=== PATIENT | female | born 1980 | race African-American/Black ===

== ENCOUNTER 2021-05-01 19:51 | Emergency (ER) | payer SELFPAY ==
[2021-05-01] MEDS ORDERED: DIPHENHYDRAMINE 50 MG/ML VIAL ONE (20:31)
[2021-05-01] MEDS ORDERED: METOCLOPRAMIDE 10 MG/2mL INJ ONE (20:31)
[2021-05-01] MEDS ORDERED: NA CHLORIDE 0.9% 1,000 ML ONE (20:31)
[2021-05-01 20:37] LABS: Basophils % 0.6 % (0-1.3); Hematocrit 35.4 % (36.0-45.0); Lymphocytes % 20.9 % (15.3-44.8); MPV 8.7 fL (7.6-11.3); RBC Red Blood Cell Count 4.76 M/uL (3.86-4.86)
[2021-05-01 21:03] LABS: ALT/SGPT 89 U/L (12-78); AST/SGOT 22 U/L (15-37); Albumin 3.8 g/dL (3.4-5.0); Alkaline Phosphatase 93 U/L (45-117); BUN Blood Urea Nitrogen 18 mg/dL (7-18); Bicarbonate 26 mmol/L (21-32); Bilirubin Direct < 0.1 mg/dL (0-0.2); Bilirubin Total 0.2 mg/dL (0.2-1.0); Glucose Level 114 mg/dL (74-106); Lipase 129 U/L (73-393); Protein, Total 8.5 g/dL (6.4-8.2); Sodium Level 140 mmol/L (136-145)
[2021-05-01 21:53] LABS: Urine Blood Negative (Negative); Urine Glucose Negative (Negative); Urine Protein Negative (Negative)
--- NOTE | 2021-05-01 22:51 | EDPHYS ---
Physician Documentation [facility] Name: Kathia Zendejas Age: 41 yrs Sex: Female : 1980 Arrival Date: 05/01/2021 Time: 19:54 Bed 19 Private MD: ED Physician Dhruv Gerardo HPI: 05/01 19:55 This 41 yrs old Female presents to ER via EMS with complaints of Abdominal Pain. jmm 19:55 The patient presents with abdominal pain. Onset: The symptoms/episode began/occurred jmm gradually, 3 day(s) ago. The symptoms do not radiate. Associated signs and symptoms: Pertinent positives: nausea and vomiting. The symptoms are described as achy. Modifying factors: The symptoms are alleviated by nothing, the symptoms are aggravated by nothing. This is a 41 year old female with no chronic medical conditions that presents to the ED with complaints of abdominal pain beginning approx 3 days ago with vomiting. Patient states symptoms are similar to previous episodes since her hysterectomy. . 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 - Social history:: Smoking status: Patient reports the use of cigarette tobacco products, smokes one-half pack cigarettes per day. ROS: 19:55 Constitutional: Negative for fever, chills, and weight loss, Cardiovascular: Negative jmm for chest pain, palpitations, and edema, Respiratory: Negative for shortness of breath, cough, wheezing, and pleuritic chest pain. 19:55 Abdomen/GI: Positive for abdominal pain, nausea and vomiting. 19:55 All other systems are negative. Exam: 19:55 Constitutional: This is a well developed, well nourished patient who is awake, alert, jmm and in no acute distress. Head/Face: atraumatic. Eyes: EOMI, no conjunctival erythema appreciated ENT: Moist Mucus Membranes Neck: Trachea midline, Supple Chest/axilla: Normal chest wall appearance and motion. Cardiovascular: Regular rate and rhythm. No edema appreciated Respiratory: Normal respirations, no respiratory distress appreciated Abdomen/GI: Non distended, soft Back: Normal ROM Skin: General appearance color normal MS/ Extremity: Moves all extremities, no obvious deformities appreciated, no edema noted to the lower extremities Neuro: Awake and alert, normal gait Psych: Behavior is normal, Mood is normal, Patient is cooperative and pleasant Vital Signs: 19:57 BP 100 / 59; Pulse 69; Resp 18; Temp 97.3; Pulse Ox 100% on R/A; Pain 10/10; zb 20:31 Weight 52.62 kg; Height 5 ft. (152.40 cm); zb 21:30 BP 100 / 60; Pulse 107; Resp 18; Pulse Ox 99% on R/A; zb 22:19 BP 122 / 90; Pulse 101; Resp 16; Pulse Ox 100% on R/A; zb 20:31 Body Mass Index 22.65 (52.62 kg, 152.40 cm) zb MDM: 19:56 Patient medically screened. [facility] 22:48 Data reviewed: vital signs, nurses notes. Counseling: I had a detailed discussion with [facility] the patient and/or guardian regarding: the historical points, exam findings, and any diagnostic results supporting the discharge/admit diagnosis, radiology results, the need for outpatient follow up, to return to the emergency department if symptoms worsen or persist or if there are any questions or concerns that arise at home. 22:48 ED course: Patient is alert and non toxic in appearance in the ED. No signs of resp [facility] distress. Patient is advised to follow up with GI for further evaluation. Patient understood and agrees with the plan of care. . 05/01 19:55 Order name: Basic Metabolic Panel; Complete Time: 21:06 [facility] 05/01 19:55 Order name: CBC with Diff; Complete Time: 20:51 [facility] 05/01 19:55 Order name: Hepatic Function; Complete Time: 21:06 [facility] 05/01 19:55 Order name: Lipase; Complete Time: 21:06 [facility] 05/01 19:55 Order name: CT Abd/Pelvis - IV Contrast Only [facility] 05/01 21:53 Order name: Urine Dipstick-Ancillary; Complete Time: 22:00 [facility] 05/01 19:55 Order name: IV Saline Lock; Complete Time: 20:31 [facility] 05/01 19:55 Order name: Labs collected and sent; Complete Time: 20:31 [facility] 05/01 21:06 Order name: Urine Dipstick-Ancillary (obtain specimen); Complete Time: 21:50 [facility] Administered Medications: 20:30 Drug: NS 0.9% 1000 ml Route: IV; Rate: 1 bolus; Site: left antecubital; zb 21:30 Follow up: Response: No adverse reaction; Marked relief of symptoms; IV Status: zb Completed infusion; IV Intake: 1000ml 20:30 Drug: Reglan (metoCLOPramide) 20 mg Route: IVP; Site: left antecubital; zb 20:47 Follow up: Response: No adverse reaction; Marked relief of symptoms; Pain is decreased zb 20:31 Drug: diphenhydrAMINE 12.5 mg Route: IVP; Site: left antecubital; zb 20:47 Follow up: Response: No adverse reaction; Marked relief of symptoms; Nausea is decreasedzb Disposition: 05/02 05:12 Co-signature as Attending Physician, Dhruv Gerardo MD. [email or web address] Disposition: 05/01/21 22:50 Discharged to Home. Impression: Generalized abdominal pain, Vomiting. - Condition is Stable. - Discharge Instructions: Abdominal Pain, Adult, Nausea and Vomiting, Adult. - Prescriptions for Zofran ODT 4 mg Oral tablet,disintegrating - place 1 tablet by TRANSLINGUAL route every 4-6 hours; 20 tablet. - Medication Reconciliation Form, Thank You Letter, Antibiotic Education, Prescription Opioid Use form. - Follow up: Elías Hdez MD; When: 2 - 3 days; Reason: Recheck today's complaints, Continuance of care, Re-evaluation by your physician. Signatures: Dispatcher [employer] [facility] Salomon Castellanos PA PA jmm Holmes, Maurice, MD MD 7 Symone Kilgore RN RN zb Corrections: (The following items were deleted from the chart) 05/01 22:56 22:50 05/01/2021 22:50 Discharged to Home. Impression: Generalized abdominal pain; zb Vomiting. Condition is Stable. Forms are Medication Reconciliation Form, Thank You Letter, Antibiotic Education, Prescription Opioid Use. Follow up: Elías Hdez; When: 2 - 3 days; Reason: Recheck today's complaints, Continuance of care, Re-evaluation by your physician. [employer]
--- NOTE | 2021-05-01 22:51 | ER ---
Nurse's Notes [facility] Name: Kathia Zendejas Age: 41 yrs Sex: Female : 1980 Arrival Date: 05/01/2021 Time: 19:54 Bed 19 Private MD: Diagnosis: Generalized abdominal pain;Vomiting Presentation: 05/01 19:57 Chief complaint: EMS states: pt coming from [facility] nausea x2 days, abdominal pain zb getting worst. Give zofan 4mg IM. Coronavirus screen: At this time, the client does not indicate any symptoms associated with coronavirus-19. Ebola Screen: No symptoms or risks identified at this time. Initial Sepsis Screen: Does the patient meet any 2 criteria? No. Patient's initial sepsis screen is negative. Does the patient have a suspected source of infection? No. Patient's initial sepsis screen is negative. Risk Assessment: Do you want to hurt yourself or someone else? Patient reports no desire to harm self or others. Onset of symptoms was May 01, 2021. 19:57 Acuity: BETSY 3 zb 19:57 Method Of Arrival: EMS: [facility] zb Triage Assessment: 20:00 General: Appears uncomfortable, Behavior is anxious, crying, Reports feeling ill for zb 2-3 days. Pain: Complains of pain in right upper quadrant, left upper quadrant and right lower quadrant Pain currently is 10 out of 10 on a pain scale. Quality of pain is described as aching, sharp, tender, Pain began 1 day ago. Is intermittent, Noted to be grimacing, guarding. Neuro: Level of Consciousness is awake, alert, obeys commands, Oriented to person, place, time, Moves all extremities. Full function. Cardiovascular: Patient's skin is warm and dry. Respiratory: Airway is patent. GI: Abdomen is flat, Pt is actively vomiting undigested food, Bowel sounds present X 4 quads. Reports constipation, nausea, vomiting. Derm: Skin is intact, is healthy with good turgor. Musculoskeletal: Circulation, motion, and sensation intact. Range of motion: intact in all extremities. 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 - Social history:: Smoking status: Patient reports the use of cigarette tobacco products, smokes one-half pack cigarettes per day. Screenin:37 Abuse screen: Denies threats or abuse. Denies injuries from another. Nutritional zb screening: No deficits noted. Tuberculosis screening: No symptoms or risk factors identified. Fall Risk None identified. Assessment: 20:38 Reassessment: see triage assessment. zb 20:38 GI: Abdomen is tender to palpation in right upper quadrant and right lower quadrant. zb 21:30 Reassessment: Patient appears in no apparent distress at this time. Patient and/or zb family updated on plan of care and expected duration. Pain level reassessed. Patient is alert, oriented x 3, equal unlabored respirations, skin warm/dry/pink. Patient states symptoms have improved. 22:18 Reassessment: Patient appears in no apparent distress at this time. Patient and/or zb family updated on plan of care and expected duration. Pain level reassessed. Patient is alert, oriented x 3, equal unlabored respirations, skin warm/dry/pink. Patient states symptoms have improved. 22:55 Reassessment: Patient removed iv her self. while attempting to get d/c paperwork. zb patient walked out and eloped. Vital Signs: 19:57 BP 100 / 59; Pulse 69; Resp 18; Temp 97.3; Pulse Ox 100% on R/A; Pain 10/10; zb 20:31 Weight 52.62 kg; Height 5 ft. (152.40 cm); zb 21:30 BP 100 / 60; Pulse 107; Resp 18; Pulse Ox 99% on R/A; zb 22:19 BP 122 / 90; Pulse 101; Resp 16; Pulse Ox 100% on R/A; zb 20:31 Body Mass Index 22.65 (52.62 kg, 152.40 cm) zb ED Course: 19:54 Patient arrived in ED. mw2 19:55 Symone Kilgore, RN is Primary Nurse. zb 19:55 Salomon Castellanos PA is PHCP. [facility] 19:55 Dhruv Gerardo MD is Attending Physician. m 20:00 Triage completed. zb 20:15 Inserted saline lock: 20 gauge in left antecubital area, using aseptic technique. Blood zb collected. 20:15 Initial lab(s) drawn, by me, sent to lab. zb 20:37 Patient has correct armband on for positive identification. Bed in low position. Call zb light in reach. Pulse ox on. NIBP on. Door closed. Noise minimized. 20:37 Arm band placed on. zb 21:55 CT Abd/Pelvis - IV Contrast Only In Process Unspecified. EDMS 22:50 Elías Hdez MD is Referral Physician. m 22:55 No provider procedures requiring assistance completed. IV discontinued, intact, zb bleeding controlled, No redness/swelling at site. Pressure dressing applied. Administered Medications: 20:30 Drug: NS 0.9% 1000 ml Route: IV; Rate: 1 bolus; Site: left antecubital; zb 21:30 Follow up: Response: No adverse reaction; Marked relief of symptoms; IV Status: zb Completed infusion; IV Intake: 1000ml 20:30 Drug: Reglan (metoCLOPramide) 20 mg Route: IVP; Site: left antecubital; zb 20:47 Follow up: Response: No adverse reaction; Marked relief of symptoms; Pain is decreased zb 20:31 Drug: diphenhydrAMINE 12.5 mg Route: IVP; Site: left antecubital; zb 20:47 Follow up: Response: No adverse reaction; Marked relief of symptoms; Nausea is decreasedzb Intake: 21:30 IV: 1000ml; Total: 1000ml. zb Outcome: 22:50 Discharge ordered by . mily 22:55 Eloped Time discovered patient gone: May 01, 2021 at 22:55 zb 22:56 Patient left the ED. zb Signatures: Dispatcher [employer] EDMS Salomon Castellanos PA PA Riky Velazquez mw2 Symone iKlgore RN RN zb
[2021-05-01 23:15] VITALS: TEMP 97.3
[2021-05-01 23:17] VITALS: BP 122/90; O2SAT 100
--- NOTE | 2021-05-03 09:04 | RAD REPORT ---
EXAM DESCRIPTION: CT - Abdomen Pelvis W Contrast - 05/02/2021 6:46 am CLINICAL HISTORY: Abdominal pain, hysterectomy. COMPARISON: None. TECHNIQUE: CT of the abdomen and pelvis was performed following intravenous administration of iodina freddy contrast. Arterial phase images through the abdomen, and portal venous phase images through the a bdomen and pelvis were obtained. Oral contrast was not administered. Axial, coronal, and sagittal sof t tissue window reconstructions were created and sent to PACS. This exam was performed according to our departmental dose-optimization program, which includes autom ated exposure control, adjustment of the mA and/or kV according to patient size and/or use of iterati ve reconstruction technique. FINDINGS: Mild motion degradation. Thoracic: No significant abnormality. Hepatobiliary: No concerning hepatic lesion identified. The hepatic and portal veins are patent. The gallbladder is surgically absent. No pathologic biliary ductal dilatation. Pancreas: Unremarkable. Spleen: Unremarkable. Gastrointestinal: No evidence of bowel obstruction or perienteric inflammation. The appendix is mendez l. Moderate amount of fecal material throughout the colon. Adrenals: No abnormality identified in either adrenal gland. 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 Nonobstructive calculus in the mid righ t kidney measures 0.3 cm. No ureteral calculi or hydronephrosis bilaterally. No concerning parenchyma l lesion in either kidney. Bladder/Reproductive: Grossly unremarkable appearance of the underdistended urinary bladder by CT darlin hnique. Hysterectomy. Vascular/Lymphatics: No lymphadenopathy identified by CT size criteria. Abdominal aorta is normal in caliber. The major visceral vessels are patent. Few small bilateral pelvic phleboliths. Musculoskeletal: No concerning osseous lesion identified. Anterior abdominal wall midline postsurgica l changes, with no fluid collections or inflammatory changes. Fluid / peritoneum: No significant free fluid. No free intraperitoneal air identified. IMPRESSION 1. No acute abnormality identified in the abdomen or pelvis by CT. 2. Status post hysterectomy, with no free air or free fluid identified. 3. Moderate amount of fecal material throughout the colon. Correlate for constipation. 4. Nonobstructive right renal calculus. 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 Electronically signed by: Opal Shelton MD 05/01/2021 10:16 PM CDT Due to temporary technical issues with the PACS/Fluency reporting system, reports are being signed by the in house radiologists without review as a courtesy to insure prompt reporting. The interpreting radiologist is fully responsible for the content of the report.
== END 2021-05-01 22:56 | disposition home or self-care (01) ==
LOC: ER 19:51
DX: R11.10 Vomiting, unspecified (principal); F17.210 Nicotine dependence, cigarettes, uncomplicated
CPT/HCPCS: 36415; 74177; 80048; 80076; 81003; 83690; 85025; J1200; J2765; J7030; Q9967

== ENCOUNTER 2021-10-01 16:17 | Emergency (ER) | payer SELFPAY ==
--- OUTSIDE RECORDS SUMMARY | 2021-10-01 16:24 | XMS REPORT | Continuity of Care Document ---
:1980 Author Organization [facility] t Address [address] [place] [address] Care Team Providers Name Role Phone FIELDS ROBEL Arora Primary Care Physician Unavailable Roberto Hayden Attending Clinician Unavailable Ronak Richard Attending Clinician Unavailable Checo SANCHEZ Attending Clinician Unavailable DAVIS Attending Clinician Unavailable DIAMOND, Maite Attending Clinician Unavailable Maite ABDALLA Attending Clinician Unavailable FIELDS, A Attending Clinician Unavailable SAUL M Attending Clinician Unavailable QIAN, T Attending Clinician Unavailable JANE Attending Clinician Unavailable DR ANDREA Attending Clinician Unavailable DR MARIVEL Attending Clinician Unavailable DR ROSA Attending Clinician Unavailable DR Maite SEGURA Attending Clinician Unavailable DR WOO Attending Clinician Unavailable DR Enrique STOVER Attending Clinician Unavailable CEDRICK, Attending Clinician Unavailable DR Yolanda MENDEZ Attending Clinician Unavailable DR MAURISIO Attending Clinician Unavailable Physician, Primary or Family Admitting Clinician UnavailRonak Szymanski Admitting Clinician Unavailable DR ANDREA Admitting Clinician Unavailable DR MARIVEL Admitting Clinician Unavailable DR ROSA Admitting Clinician Unavailable DR Maite SEGURA Admitting Clinician Unavailable DR WOO Admitting Clinician Unavailable DR Enrique STOVER Admitting Clinician Unavailable CEDRICK, MR Admitting Clinician Unavailable DR Yolanda MENDEZ Admitting Clinician Unavailable DR MAURISIO Admitting Clinician Unavailable Payers Payer Name Policy Type Policy Number Effective Date Expiration Date Ivan BELTRAN [id number] 2021 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 00:00:00 00:00:00 Problems Condition Condition Condition Status Onset Resolution Last Treating Co mments Source Name Details Category Date Date Treatment Clinician Date Cellulitis Cellulitis Diagnosis Active [facility] of right of right Care finger finger [facility] HTN HTN Problem Active [facility] (hypertens (hypertens Ca re ion) ion) [facility] Screening Screening Diagnosis Active C entral for STD for STD Care (sexually (sexually Comm uni transmitte transmitte ty d disease) d disease) He [facility] Hand pain, Hand pain, Diagnosis Active [facility] right right Care [facility] Generalize Generalize Diagnosis Active [facility] d rash d rash Care [facility] Allergies, Adverse Reactions, Alerts Allergy Allergy Status Severity Reaction(s) Onset Inactive Treating Comm ents Source Name Type Date Date Clinician No Known DA Active U 2020-0 [facility] 00:00: [facility] [place] No Known DA Active U 2020-0 [facility] Allergie 11-24 [facility] 00:00: [facility] 00 [facility] [place] No Known DA Active U 2020-0 [facility] Allergie -05 [facility] 00:00: e 00 [facility] No Known DA Active U 2020-0 [facility] Allergie -05 [facility] s 00:00: e 00 [facility] Center NO KNOWN Allergy Active [facility] Medications Ordered Filled Start Stop Current Ordering Indication Dosage Frequency Signature Comments Components Source Medication Medication Date Date Medication? Clinician (SIG) Name Name Augmentin Augmentin 2018- Yes Silvia 1 tablet Central 4-15 [facility] 00:00: Communi 00 [facility] Ibuprofen Ibuprofen Yes Silvia 1 tablet Central 4-15 [facility] 00:00: Communi 00 [facility] Immunizations Ordered Immunization Filled Immunization Date Status Commen ts Source Name Name Td (adult) Td (adult) 2019-02-25 Completed [facility] 00:00:00 [facility] Vital Signs Vital Name Observation Time Observation Value Comments Source HEIGHT 2021-06-06 21:40:00 152.4 cm WEIGHT 2021-06-06 21:40:00 65.772 kg HEIGHT 2021-06-06 21:40:00 152.4 cm WEIGHT 2021-06-06 21:40:00 65.772 kg Procedures Procedure Date / Time Performed Performing Clinician Natalie steven [id number] 2019-11-30 00:00:00 MOTMU.01 [facility] [place] [id number] 2019-11-18 00:00:00 HANAL.01 [facility] [id number] 2019-11-18 00:00:00 HANAL.01 [facility] Encounters Start End Encounter Admission Attending Care Care Encounter Source Date/Time Date/Time Type Type Clinicians Facility Department ID 2020-03-19 Inpatient HCABM CALDERON [id number] [facility] 12:01:00 [id number] [facility] 2020-02-05 Inpatient [facility] [id number] H arris 10:06:24 [facility] 2020-01-10 Inpatient HCAWU CALDERON [id number] [facility] 12:45:[id number] [facility] 2019-12-14 Inpatient EL Motiwala, HCATB DAYS [id number] [facility] 15:15:00 Aguirre [id number] [facility] [place] 2019-12-06 Inpatient Motiwala, HCAT[facility] DAYS [id number] [facility] 15:15:00 Aguirre [id number] [facility] [place] 2019-11-24 Inpatient EM Richard, HCATB PCI [id number] [facility] 17:10:00 [id number] [place] 2019-11-17 Inpatient HCAWU CALDERON [id number] [facility] 11:55:[id number] [facility] 2021-09-21 2021-09-21 Outpatient NGUYỄN-GILM [facility] [id number] [place] 08:31:39 08:44:26 ESPERANZA NEVILLE [facility] 2021-06-06 2021-06-06 Emergency ER [facility] Emergency [id number] [facility] 20:44:00 20:44:00 2021-06-01 2021-06-01 Outpatient [facility] [id number] [place] 00:00:00 00:00:00 [facility] 2021-05-25 2021-05-25 Outpatient DIAMOND [facility] [id number] [place] 12:32:27 13:36:24 [facility] 2021-01-21 2021-01-21 Outpatient [facility] [id number] [place] 00:00:00 00:00:00 [facility] 2021-01-21 2021-01-21 Outpatient [facility] [id number] [place] 00:00:00 00:00:00 [facility] 2021-01-18 2021-01-18 Outpatient [facility] [id number] [place] 00:00:00 00:00:00 [facility] 2021-01-18 2021-01-18 Outpatient [facility] [id number] [place] 00:00:00 00:00:00 [facility] 2021-01-08 2021-01-08 Outpatient [facility] [id number] [place] 00:00:00 00:00:00 [facility] 2020-12-24 2020-12-24 Outpatient RM, [facility] [id number] [place] 00:00:00 00:00:00 [facility] 2020-12-22 2020-12-22 Outpatient FIELDS, [facility] [id number] [place] 09:07:57 09:33:18 [facility] 2020-12-15 2020-12-15 Outpatient HUGHES, [facility] [id number] [place] 00:00:00 00:00:00 YOBANI Hemaite [facility] 2020-12-08 2020-12-08 Outpatient LAUGHLIN, [facility] [id number] [place] 06:56:21 10:28:06 MARI Rodriguez 2020-06-30 2020-06-30 [facility] [id number] [place] 03:51:00 11:47:00 MALORIE Rodriguez 2020-06-30 2020-06-30 Emergency [facility] [id number] [place] 06:41:15 06:41:15 [facility] 2020-06-30 2020-06-30 Emergency [facility] [id number] [place] 05:19:44 05:19:44 [facility] 2020-04-08 2020-04-08 Outpatient [facility] [id number] [place] 00:00:00 00:00:00 [facility] 2020-04-08 2020-04-08 Outpatient [facility] [id number] [place] 00:00:00 00:00:00 [facility] 2020-03-26 2020-03-26 Outpatient [facility] [id number] [place] 12:16:08 12:16:08 [facility] 2020-03-26 2020-03-26 Outpatient [facility] [id number] [place] 10:28:54 10:28:54 2020-03-19 2020-03-19 Outpatient [facility] [id number] [place] 00:00:00 00:00:00 2020-03-16 2020-03-16 Outpatient [facility] [id number] [place] 00:00:00 00:00:00 2020-03-02 2020-03-02 Outpatient [facility] [id number] [place] 00:00:00 00:00:00 2020-02-17 2020-02-17 Outpatient [facility] [id number] [place] 00:00:00 00:00:00 2020-02-17 2020-02-17 Outpatient [facility] [id number] [place] 00:00:00 00:00:00 2020-02-04 2020-02-04 Outpatient [facility] [id number] [place] 09:38:14 09:38:14 2020-02-03 2020-02-03 Emergency [facility] [id number] [place] 21:04:50 21:04:50 2020-02-03 2020-02-03 Emergency [facility] [id number] [place] 18:06:55 18:06:55 Health 2020-02-03 2020-02-03 Inpatient [facility] [id number] [place] 16:32:49 16:32:49 Health 2020-01-31 2020-01-31 Emergency [facility] [id number] [place] 13:46:45 13:46:45 Health 2020-01-31 2020-01-31 Emergency [facility] [id number] [place] 11:34:50 11:34:50 2020-01-31 2020-01-31 Outpatient [facility] [id number] [place] 11:04:58 11:04:58 Health 2020-01-15 2020-01-15 Outpatient [facility] [id number] [place] 12:08:32 12:08:32 Health 2020-01-14 2020-01-14 Emergency [facility] [id number] [place] 20:45:43 20:45:43 Health 2020-01-14 2020-01-14 Emergency [facility] [id number] [place] 19:47:43 19:47:43 Health 2020-01-14 2020-01-14 Outpatient [facility] [id number] [place] 18:05:54 18:05:54 Health 2020-01-14 2020-01-14 Emergency [facility] [id number] [place] 00:00:00 00:00:00 [facility] 2020-01-13 2020-01-13 Emergency E [facility] [id number] [place] 05:27:00 07:22:00 GEMINI [facility] [place] 2019-12-21 2019-12-22 Emergency E XIANG [facility] [id number] [place] 22:59:00 02:47:00 [facility] [place] 2019-12-10 2019-12-10 Outpatient EL Motiwala, HCAT[facility] DAYS [id number] [facility] 14:42:00 14:42:00 Aguirre [id number] [facility] [place] 2019-12-09 2019-12-09 Outpatient EL Motiwala, HCAT[facility] DAYS [id number] [facility] 14:40:00 14:40:00 Aguirre [id number] [facility] [place] 2019-12-08 2019-12-08 Outpatient EL Motiwala, HCAT[facility] DAYS [id number] [facility] 14:52:00 14:52:00 Aguirre [id number] [facility] [place] 2019-12-07 2019-12-07 Outpatient EL Motiwala, HCATB DAYS [id number] [facility] 15:14:00 15:14:00 [place] [id number] [place] [facility] [place] 2019-11-11 2019-11-11 Emergency E [facility] [id number] [place] 08:58:00 10:18:00 LAURIE [facility] 2019-10-29 2019-10-29 Emergency E COL[facility] [id number] [place] 09:38:00 10:15:00 JANELLE [facility] [place] 2019-10-12 2019-10-12 Emergency E [facility] [id number] [place] 18:24:00 19:40:00 LAURIE Medica fabi [facility] 2019-10-01 2019-10-01 Emergency E [facility] [id number] [place] 07:08:00 07:36:00 LAURIE [facility] 2019-09-29 2019-09-29 Emergency E CK [facility] [id number] [place] 14:06:00 14:38:00 [facility] [place] 2019-09-14 2019-09-14 Emergency E [facility] [id number] [place] 07:21:00 08:15:00 JANELLE [facility] 2019-08-26 2019-08-26 Emergency E CK [facility] [id number] [place] 07:34:00 08:58:00 [facility] 2019-08-03 2019-08-03 [facility] [id number] [place] 09:53:15 09:53:15 Health 2019-04-14 2019-04-14 Emergency E CEDR[facility] [id number] [place] 08:27:00 12:27:00 [facility] 2019-02-25 2019-02-25 Outpatient [facility] [id number] [place] 11:00:00 11:00:00 Care [facility] sridhar d [facility] 2018-07-23 2018-07-23 Emergency E [facility] [id number] [place] 20:31:00 23:59:00 GEMINI [facility] 2018-02-24 2018-02-24 Emergency E NINA MENDEZ [facility] [id number] [place] 00:04:00 03:30:00 [facility] 2017-12-31 2017-12-31 Emergency E JOE FORDE [facility] [id number] [place] 18:08:00 20:20:00 [facility] Results Test Description Test Time Test Comments Results Result Comments Source SARS-COV2/RT-PCR ([facility]) 2021-06-07 03:38:00 Test Item Value Reference Range Interpretation Comme nts SARS-COV2/RT-PCR (test code = Negative Negative The SARS-CoV-2 target nucleic [id number]) acids are not d etected in this specimen. The presence of SARS-CoV-2/FLU/RSV viral nucleic acids cannot rule out co- infections or disease caused by other viral or bacterial pathogens. As with any molecular test, mutations within the target regions of the Xpert Xpress SARS-CoV-2/Flu/RSV test could affect primer and/or probe binding resulting in failure to detect the presence of virus or the virus being detected less predictably. False negative results may occur if the virus is present at levels below the analytical limit of detection in this specimen.This Xpert Xpress SARS-CoV-2/Flu/RSV test is a rapid, real-time RT-PCR test intended for the qualitative detection of nucleic acid from Xpert Xpress SARS-CoV-2/Flu/RSV in a nasopharyngeal swab specimen collected from individuals suspected of Xpert Xpress SARS-CoV-2/Flu/RSV by their healthcare provider. Results from quique Xpert Xpress SARS-CoV-2/Flu/RSV test should be correlated with the clinical history, epidemiological data, and other data available to the clinician evaluating the patient. Viral nucleic acid may persist in vivo, independent of virus viability. Detection of analyte target(s) does not imply that the corresponding virus(es) are infectious or are the causative agents for clinical symptoms.This test has not been Food and Drug Administration (FDA) cleared or approved and has been authorized by FDA under an Emergency Use Authorization (EUA). This EUA will be effective until the declaration that circumstances exist justifying the authorization of the emergency use of in vitro diagnostic tests for detection and/or diagnosis of COVID-19 is terminated under Section 564(b)(2) of the Act or the EUA is revoked under Section 564(g) of the Act.Fact Sheet for Healthcare Providers :https://www.[employer]gt[employer].inc/Documents/Xpert%20Xpress%20SARS%20CoV-2/Fact%20Sheets/3 023902%47AYJB-JVU-6%20HEALTHCARE%20PROVIDERS%20FACT%20SHEET.pdfFact Sheet for Healthcare Patients:https://www.[employer].inc /Documents/Xpert%20Xpress%20SARS%20Cov-2/Fact%20Sheets/3023801%74GNWR-HLE-4%20P ATIENT%20FACT%20SHEET.pdfBLOOD [id number] 17:27:00 Test Item Value Reference Range Interpretation Comments Culture Observations (test NO GROWTH AFTER 5 code = COB1) DAYS BLOOD [id number] 17:27:00 Test Item Value Reference Range Interpretation Comments Culture Observations (test NO GROWTH AFTER 5 code = COB1) DAYS PROTHROMBIN [id number] 06:36:00 Test Item Value Reference Range Interpretation Comments PT (test code = 17.0 s 9.8-13.6 H TT) INR (test code = 1.5 INR) INRH (test code = SUGGESTED INRH) THERAPEUTIC RANGE FOR INR: 2.5 - 3.5 For Patients with Prosthetic Valves or Patients with recurrent Thromboembolic Events 2.0 - 3.0 For Most Other Applications PTT (PARTIAL THROMBOPLASTIN TIME)2020-01-13 06:36:00 Test Item Value Reference Range Interpretation Comments PTT (test code = 70.7 s 20.2-38.0 HH PTT) PTTH (test code = To monitor the PTTH) effectiveness of heparin, we offer the Anti-Xa (Heparin Assay). It can be used for either unfractionated or LMW Heparin. Order Code is ANTI-XA BASIC METABOLIC [id number] 06:35:00 Test Item Value Reference Range Interpretation Comments GLUCOSE (test code = 115 mg/dL 75-100 H 06D) SODIUM (test code = 140 mmol/L 136-145 01A) POTASSIUM (test code = 3.0 mmol/L 3.6-5.1 L 01B) CHLORIDE (test code = 105 mmol/L 98-107 04A) CO2 (test code = 02A) 25 mmol/L 22-32 ANION GAP (test code = 13.0 mmol/L ANG) BUN (test code = 05D) 8 mg/dL 7-18 CREATININE (test code 0.8 mg/dL 0.4-1.1 = 03E) GFR (test code = GFR) 91 mL/min/1.73m\S\2 >=90 GFR 105 mL/min/1.73m\S\2 >=90 (test code = GFRAA) EGFR (test code = eGFR BY CKD-EPI EGFR) CALCULATION IS NOT RECOMMENDED FOR PATIENTS UNDER 18 YEARS OF AGE. BUN/CREA (test code = 10 12-20 L BCR) CALCIUM (test code = 8.7 mg/dL 8.3-9.5 09D) CARDIAC [id number] 06:34:00 Test Item Value Reference Range Interpretation Comments TROPONIN I (test code = A84) <0.015 ng/mL 0.000-0.045 CBC (INCLUDES AUTOMATED DIFFERENTIAL)2020-01-13 06:15:00 Test Item Value Reference Range Interpretation Comments WBC (test code = WBC) 13.0 10\S\3/uL 4.5-11.0 H RBC (test code = RBC) 3.43 10\S\6/uL 4.30-5.70 L HGB (test code = HBG) 8.0 g/dL 12.0-15.5 L HCT (test code = HCT) 25.0 % 35.0-44.0 L MCV (test code = MCV) 72.9 fL 81.0-99.0 L MCH (test code = MCH) 23.3 pg 27.0-31.0 L MCHC (test code = MCHC) 32.0 g/dL 32.0-36.0 RDW (test code = RDW) 17.4 % 11.5-14.5 H PLT (test code = PLT) 438 10\S\3/uL 130-400 H MPV (test code = MPV) 10.0 fL 9.4-12.4 NEUTROP # (test code = NE#) 10.2 10\S\3/uL 1.6-8.0 H LYMPH # (test code = LY#) 1.1 10\S\3/uL 1.1-3.5 MONOCYTE # (test code = MO#) 1.6 10\S\3/uL 0.0-1.1 H EOSINOPH # (test code = EO#) 0.0 10\S\3/uL 0.0-0.7 BASOPHIL # (test code = BA#) 0.1 10\S\3/uL 0.0-0.3 IG # (test code = IG#) 0.07 10\S\3/uL 0.00-0.06 H NRBC # (test code = NRBC#) 0.00 10\S\3/uL 0.00-0.01 NEUTROPH % (test code = NE%) 78.4 % 35.0-73.0 H LYMPH % (test code = LY%) 8.1 % 20.0-55.0 L MONO % (test code = MO%) 12.3 % 2.5-10.0 H EOSINOPH % (test code = EO%) 0.3 % 0.0-5.0 BASOPHIL % (test code = BA%) 0.4 % 0.0-2.0 IG % (test code = IG%) 0.5 % 0.0-0.8 NRBC% (test code = NRBC%) 0.0 % 0.0-0.2 MANDIFF (test code = MDIFF) NO NO RBC MORPH (test code = RBCMOR) NORMAL URINE [id number] 10:38:00 Test Item Value Reference Range Interpretation Comments Culture Observations THREE OR MORE SPECIES (test code = COB1) OF BACTERIA ISOLATED. PROBABLE CONTAMINATION. Culture Observations IDENTIFICATION AND (test code = COB17) SUSCEPTIBILITY NOT INDICATED. RECOLLECTION RECOMMENDED CBC WITH MANUAL [id number] 09:35:00 Test Item Value Reference Range Interpretation Comments WBC (test code = WBC) 28.6 10\S\3/uL 4.5-11.0 HH RBC (test code = RBC) 4.43 10\S\6/uL 4.30-5.70 HGB (test code = HBG) 10.5 g/dL 12.0-15.5 L HCT (test code = HCT) 32.5 % 35.0-44.0 L MCV (test code = MCV) 73.4 fL 81.0-99.0 L MCH (test code = MCH) 23.7 pg 27.0-31.0 L MCHC (test code = MCHC) 32.3 g/dL 32.0-36.0 RDW (test code = RDW) 17.1 % 11.5-14.5 H PLT (test code = PLT) 367 10\S\3/uL 130-400 MPV (test code = MPV) 10.3 fL 9.4-12.4 NEUTROP # (test code = 23.8 10\S\3/uL 1.6-8.0 H NE#) LYMPH # (test code = 1.4 10\S\3/uL 1.1-3.5 LY#) MONOCYTE # (test code = 3.1 10\S\3/uL 0.0-1.1 H MO#) EOSINOPH # (test code = 0.0 10\S\3/uL 0.0-0.7 EO#) BASOPHIL # (test code = 0.1 10\S\3/uL 0.0-0.3 BA#) IG # (test code = IG#) 0.25 10\S\3/uL 0.00-0.06 H NRBC # (test code = 0.00 10\S\3/uL 0.00-0.01 NRBC#) NEUTROPH % (test code = 83.2 % 35.0-73.0 H NE%) LYMPH % (test code = 4.9 % 20.0-55.0 L LY%) MONO % (test code = 10.7 % 2.5-10.0 H MO%) EOSINOPH % (test code = 0.0 % 0.0-5.0 EO%) BASOPHIL % (test code = 0.3 % 0.0-2.0 BA%) IG % (test code = IG%) 0.9 % 0.0-0.8 H NRBC% (test code = 0.0 % 0.0-0.2 NRBC%) MAN DIFF (test code = MANUAL HMDIFF) DIFFERENTIAL SEG (test code = SEG) 82 % 42-75 H BAND (test code = BAND) 2 % 0-8 LYMPH (test code = 5 % 20-51 L LYMPH) MONO (test code = MONO) 11 % 3-11 EOS (test code = EOS) 0 % 0-10 BASO (test code = BASO) 0 % 0-2 RBC MORPH (test code = ABNORMAL NORMAL A RBCMORN) PLT EST (test code = ADEQUATE ADEQUATE PLTEST) PLT MORPH (test code = NORMAL (1.5-3 um) NORMAL PLTMOR) ANISO (test code = 1+ NONE A ANISO) HYPOCHROM (test code = 1+ NONE A HYPOC) COMPREHENSIVE METABOLIC [id number] 09:22:00 Test Item Value Reference Range Interpretation Comments GLUCOSE (test code = 105 mg/dL 75-100 H 06D) SODIUM (test code = 138 mmol/L 136-145 01A) POTASSIUM (test code = 3.0 mmol/L 3.6-5.1 L 01B) CHLORIDE (test code = 107 mmol/L 98-107 04A) CO2 (test code = 02A) 22 mmol/L 22-32 ANION GAP (test code = 12.0 mmol/L ANG) BUN (test code = 05D) 23 mg/dL 7-18 H CREATININE (test code 1.2 mg/dL 0.4-1.1 H = 03E) GFR (test code = GFR) 54 mL/min/1.73m\S\2 >=90 L GFR 62 mL/min/1.73m\S\2 >=90 L (test code = GFRAA) EGFR (test code = eGFR BY CKD-EPI EGFR) CALCULATION IS NOT RECOMMENDED FOR PATIENTS UNDER 18 YEARS OF AGE. BUN/CREA (test code = 18 12-20 BCR) CALCIUM (test code = 8.3 mg/dL 8.3-9.5 09D) BILI TOTAL (test code 0.9 mg/dL 0.2-1.0 = 11A) PROTEIN (test code = 8.0 g/dL 6.4-8.2 07D) ALBUMIN (test code = 2.9 g/dL 3.5-4.8 L 08D) GLOBULIN (test code = 5.1 g/dL 1.5-3.8 H GLB) ALB/GLOB (test code = 0.6 1.0-2.6 L AGRR) ALK PHOS (test code = 80 IU/L 42-121 35A) AST (test code = 30A) 17 IU/L <=42 ALT (test code = 31A) 14 IU/L <=78 DRUGS OF [id number] 09:20:00 Test Item Value Reference Range Interpretation Comments DRUG SCRN (test code URINE DRUG SCREEN = HDOA) This is an unconfirmed screening result and should not be used for non-medical purposes CANNABINOD (test code Negative NEGATIVE = 88C) AMPHETAMINE (test Negative NEGATIVE code = 84A) BENZODIAZP (test code Negative NEGATIVE = 86A) BARBITURAT (test code Negative NEGATIVE = 85A) OPIATES (test code = Negative NEGATIVE 92B) COCAINE (test code = POSITIVE NEGATIVE A 87A) PHENCYCLID (test code Negative NEGATIVE = 66A) METHADONE (test code Negative NEGATIVE = 64A) DOAH (test code = DOAH.) *URINE DRUG SCREEN Cut-off values are as follows: Cannabinoids 50 ng/mL Cocaine 300 ng/mL Amphetamines 1000 ng/mL Phencyclidine 25 ng/mL Benzodiazepines 200 ng.mL Methadone 300 ng/mL Barbiturates 200 ng/mL Opiates 2000 ng/mL LACTIC [id number] 09:17:00 Test Item Value Reference Range Interpretation Comments LACTIC ACD (test code = LA) 1.0 mmol/L 0.4-2.0 AMYLASE AND [id number] 09:13:00 Test Item Value Reference Range Interpretation Comments AMYLASE (test code = 10A) 56 U/L 28-100 LIPASE (test code = 60A) 78 IU/L 73-393 ALCOHOL BLOOD (ETOH)2020-01-10 09:13:00 Test Item Value Reference Range Interpretation Comments ETOH (test code = HALC) ETHANOL The result is to be used only for medical purposes ALCOHOL (test code = <10 mg/dL <=10 56A) URINALYSIS WITH [id number] 09:11:00 Test Item Value Reference Range Interpretation Comments COLOR (test code = COLU) DK YELLOW YELLOW A CLARITY (test code = CLA) TURBID CLEAR A GLUCOSE UR (test code = UA NEGATIVE NEGATIVE GLUCOSE) BILI UR (test code = BILE) 1+ NEGATIVE A KETONES UR (test code = CARRINGTON) 1+ NEGATIVE A SP GRAVITY (test code = SPGR) 1.028 1.005-1.030 PH UR (test code = PH) 6.0 4.5-8.0 PROTEIN UR (test code = PU) 2+ NEGATIVE A UROBIL UR (test code = UROQ) 1.0 EU/dL 0.2-1.0 NITRITE UR (test code = NEGATIVE NEGATIVE NITRITE) BLOOD UR (test code = UA 2+ NEGATIVE A BLOOD) LEUK ES UR (test code = LEUK) 2+ NEGATIVE A WBC UR (test code = UWBC) 15 /HPF 0-5 H RBC UR (test code = URBC) 3 /HPF 0-2 H EPITH UR (test code = UEPC) MODERATE /LPF FEW A BACTERIA UR (test code = MODERATE /HPF NONE A UBACT) CAST UR (test code = CAST) /LPF NONE CRYSTAL UR (test code = CRYU) / LPF NONE MUCUS UR (test code = MUC) MODERATE / HPF NONE A AMORPH UR (test code = JENNY) / HPF NONE TRICH UR (test code = UTRICH) /HPF NONE YEAST UR (test code = UY) /HPF NONE SPERM UR (test code = USPERM) /HPF NONE URINE [id number] 09:06:00 Test Item Value Reference Range Interpretation Comments PREG UR (test code = PGU) NEGATIVE NEGATIVE URINE [id number] 09:29:00 Test Item Value Reference Range Interpretation Comments Culture Observations THREE OR MORE SPECIES (test code = COB1) OF BACTERIA ISOLATED. PROBABLE CONTAMINATION. Culture Observations IDENTIFICATION AND (test code = COB17) SUSCEPTIBILITY NOT INDICATED. RECOLLECTION RECOMMENDED Isolate 1 (test code = Escherichia coli A ISO1) ampicillin (test code ug/mL R = am) piperacillin/tazobacta ug/mL S m (test code = tzp) ceftazidime (test code ug/mL S = jaja) ceftriaxone1 (test ug/mL S code = ctr) cefepime (test code = ug/mL S fep) aztreonam (test code = ug/mL S azm) ertapenem (test code = ug/mL S etp) meropenem (test code = ug/mL S mem) gentamicin (test code ug/mL S = gm) tobramycin (test code ug/mL S = tob) levofloxacin (test ug/mL R code = lev) trimethoprim/sulfameth ug/mL S oxazole (test code = sxt) SERUM [id number] 00:09:00 Test Item Value Reference Range Interpretation Comments PREG SRM (test code = PGS) NEGATIVE NEGATIVE URINALYSIS WITH [id number] 00:09:00 Test Item Value Reference Range Interpretation Comments COLOR (test code = COLU) YELLOW YELLOW CLARITY (test code = CLA) CLOUDY CLEAR A GLUCOSE UR (test code = UA NEGATIVE NEGATIVE GLUCOSE) BILI UR (test code = BILE) NEGATIVE NEGATIVE KETONES UR (test code = CARRINGTON) TRACE NEGATIVE A SP GRAVITY (test code = SPGR) 1.014 1.005-1.030 PH UR (test code = PH) 6.5 4.5-8.0 PROTEIN UR (test code = PU) 1+ NEGATIVE A UROBIL UR (test code = UROQ) 1.0 EU/dL 0.2-1.0 NITRITE UR (test code = NEGATIVE NEGATIVE NITRITE) BLOOD UR (test code = UA BLOOD) 1+ NEGATIVE A LEUK ES UR (test code = LEUK) 3+ NEGATIVE A WBC UR (test code = UWBC) 25 /HPF 0-5 H RBC UR (test code = URBC) 2 /HPF 0-2 EPITH UR (test code = UEPC) FEW /LPF FEW BACTERIA UR (test code = UBACT) MODERATE /HPF NONE A CAST UR (test code = CAST) /LPF NONE CRYSTAL UR (test code = CRYU) / LPF NONE MUCUS UR (test code = MUC) / HPF NONE AMORPH UR (test code = JENNY) / HPF NONE TRICH UR (test code = UTRICH) /HPF NONE YEAST UR (test code = UY) /HPF NONE SPERM UR (test code = USPERM) /HPF NONE PROCALCITONIN (PCT)2019-12-01 05:52:00 Test Item Value Reference Range Interpretation Comments PROCALCITONIN (PCT) (test code = 0.25 ng/mL 0.00-0.50 N PROCAL) - XR CHEST 1 [id number] 21:49:00Patient Name: JESUS STANTON Unit No: [id number] EXAMS: CPT: [id number] XR CHEST 1 V 00006 PORTABLE CHEST, 11/30/2019. Comparison: None. CLINICAL: Line placement. COMMENT: The right PICC tip overlies the cavoatrial junction. The heart, mediastinum, hilar regions and pulmonary vasculature appear within normal limits. There are bibasilar consolidations and/or atelectasis. The bony thorax is intact. IMPRESSION: Status post line placement. Bibasilar consolidations and/or atelectasis. at 214 Reported and signed by: Franklin Machado MD CC: Carla Allen; Wyatt Richard MD Technologist: Waldo Cartagena Time: DAP (Gy m2): Air Kerma (mGy): Trscr Dt/Tm: 11/30/2019 (2148) by:[email or web address] Orig Print D/T: S: 11/30/2019 (2151) BATCH NO: N/A Name: JESUS STANTON [facility] Edward Phys: MOTMU. - aCtrachoCarla J [address] [facility] : 1980 Age: 39 Sex: F Sallie Leon Loc: T.316 A Exam Date: 11/30/2019 Status: ADM IN PH: FAX: PAGE 1 Signed ReportBLOOD CULTURE 2019-11-29 14:59:00 Test Item Value Reference Range Interpretation Comments Culture Observations (test NO GROWTH AFTER 5 code = COB1) DAYS BASIC METABOLIC [id number] 06:30:00 Test Item Value Reference Range Interpretation Comments SODIUM (test code 141 mmol/L 136-145 N = NA) POTASSIUM (test 3.8 MMOL/L 3.6-5.2 N code = K) CHLORIDE (test 107 MMOL/L 98-110 N code = CL) CARBON DIOXIDE 26 mEq/L 24-32 N (test code = CO2) GLUCOSE (test code 91 mg/dL 70-110 N = GLU) BLOOD UREA 9 mg/dL 7-18 N NITROGEN (test code = BUN) GLOMERULAR >=60 max >60 The estimated FILTRATION RATE estimate glomerular (test code = GFR) filtration rate is computed usingpatient ra ce, age (>18), sex, and serum creatinin e. If anyof the neede d data elements a re missing the Laboratory shala ot compute an estimation of t he glomerular filtration rate . CREATININE (test 0.62 mg/dL 0.60-1.30 N code = CREAT) CALCIUM (test code 9.4 mg/dL 8.6-10.4 N = CA) BASIC METABOLIC [id number] 06:28:00 Test Item Value Reference Range Interpretation Comments SODIUM (test code = NA) mmol/L 136-145 POTASSIUM (test code = K) 3.8 MMOL/L 3.6-5.2 N CHLORIDE (test code = CL) MMOL/L 98-110 CARBON DIOXIDE (test code = CO2) mEq/L 24-32 GLUCOSE (test code = GLU) mg/dL 70-110 BLOOD UREA NITROGEN (test code = 9 mg/dL 7-18 N BUN) GLOMERULAR FILTRATION RATE (test >60 code = GFR) CREATININE (test code = CREAT) mg/dL 0.60-1.30 CALCIUM (test code = CA) mg/dL 8.6-10.4 CBC W/AUTO [id number] 05:50:00 Test Item Value Reference Range Interpretation Comments WHITE BLOOD CELL (test code = WBC) 6.35 K/mm3 5.0-12.0 N RED BLOOD CELL (test code = RBC) 3.52 M/mm3 4.20-5.40 L HEMOGLOBIN (test code = HGB) 8.3 G/DL 12.0-16.0 L HEMATOCRIT (test code = HCT) 26.6 % 36.0-46.0 L MEAN CELL VOLUME (test code = MCV) 76 fL 81-99 L MEAN CELL HGB (test code = MCH) 23.6 PGM 27-31 L MEAN CELL HGB CONCENTRATION (test 31.2 G/DL 33-37 L code = MCHC) RED CELL DISTRIBUTION WIDTH (test 16.5 % 11.6-16.2 H code = RDW) PLATELET COUNT (test code = PLT) 514 K/mm3 130-400 H MEAN PLATELET VOLUME (test code = 9.6 fl 7.4-10.4 N MPV) NEUTROPHIL % (test code = NT%) 50.2 % 43-65 N IMMATURE GRANULOCYTE % (test code 0.5 % 0.0-2.0 N = IG%) LYMPHOCYTE % (test code = LY%) 31.8 % 20.5-45.5 N MONOCYTE % (test code = MO%) 13.7 % 5.5-11.7 H EOSINOPHIL % (test code = EO%) 3.3 % 0.9-2.9 H BASOPHIL % (test code = BA%) 0.5 % 0.2-1.0 N NUCLEATED RBC % (test code = 0.0 % 0-1.0 N NRBC%) NEUTROPHIL # (test code = NT#) 3.19 K/mm3 2.2-4.8 N LYMPHOCYTE # (test code = LY#) 2.02 K/mm3 1.3-2.9 N MONOCYTE # (test code = MO#) 0.87 K/mm3 0.3-0.8 H EOSINOPHIL # (test code = EO#) 0.21 K/MM3 0.0-0.2 H BASOPHIL # (test code = BA#) 0.03 K/mm3 0.0-0.1 N CBC W/AUTO [id number] 08:11:00 Test Item Value Reference Range Interpretation Comments WHITE BLOOD CELL (test code = WBC) 6.60 K/mm3 5.0-12.0 N RED BLOOD CELL (test code = RBC) 3.30 M/mm3 4.20-5.40 L HEMOGLOBIN (test code = HGB) 7.8 G/DL 12.0-16.0 L HEMATOCRIT (test code = HCT) 24.7 % 36.0-46.0 L MEAN CELL VOLUME (test code = MCV) 75 fL 81-99 L MEAN CELL HGB (test code = MCH) 23.6 PGM 27-31 L MEAN CELL HGB CONCENTRATION (test 31.6 G/DL 33-37 L code = MCHC) RED CELL DISTRIBUTION WIDTH (test 16.4 % 11.6-16.2 H code = RDW) PLATELET COUNT (test code = PLT) 494 K/mm3 130-400 H MEAN PLATELET VOLUME (test code = 9.9 fl 7.4-10.4 N MPV) NEUTROPHIL % (test code = NT%) 42.1 % 43-65 L IMMATURE GRANULOCYTE % (test code 0.5 % 0.0-2.0 N = IG%) LYMPHOCYTE % (test code = LY%) 37.9 % 20.5-45.5 N MONOCYTE % (test code = MO%) 16.1 % 5.5-11.7 H EOSINOPHIL % (test code = EO%) 2.9 % 0.9-2.9 N BASOPHIL % (test code = BA%) 0.5 % 0.2-1.0 N NUCLEATED RBC % (test code = 0.0 % 0-1.0 N NRBC%) NEUTROPHIL # (test code = NT#) 2.79 K/mm3 2.2-4.8 N LYMPHOCYTE # (test code = LY#) 2.50 K/mm3 1.3-2.9 N MONOCYTE # (test code = MO#) 1.06 K/mm3 0.3-0.8 H EOSINOPHIL # (test code = EO#) 0.19 K/MM3 0.0-0.2 N BASOPHIL # (test code = BA#) 0.03 K/mm3 0.0-0.1 N PROCALCITONIN (PCT)2019-11-28 07:08:00 Test Item Value Reference Range Interpretation Comments PROCALCITONIN (PCT) (test code = 1.67 ng/mL 0.00-0.50 H PROCAL) Comments to Phleb: DRAW WITH AM LABSBASIC METABOLIC [id number] 06:45:00 Test Item Value Reference Range Interpretation Comments SODIUM (test code 138 mmol/L 136-145 N = NA) POTASSIUM (test 3.6 MMOL/L 3.6-5.2 N code = K) CHLORIDE (test 104 MMOL/L 98-110 N code = CL) CARBON DIOXIDE 26 mEq/L 24-32 N (test code = CO2) GLUCOSE (test code 94 mg/dL 70-110 N = GLU) BLOOD UREA 5 mg/dL 7-18 L NITROGEN (test code = BUN) GLOMERULAR >=60 max >60 The estimated FILTRATION RATE estimate glomerular (test code = GFR) filtration rate is computed usingpatient ra ce, age (>18), sex, and serum creatinin e. If anyof the neede d data elements a re missing the Laboratory shala ot compute an estimation of t he glomerular filtration rate . CREATININE (test 0.66 mg/dL 0.60-1.30 N code = CREAT) CALCIUM (test code 8.1 mg/dL 8.6-10.4 L = CA) BASIC METABOLIC [id number] 06:44:00 Test Item Value Reference Range Interpretation Comments SODIUM (test code = NA) mmol/L 136-145 POTASSIUM (test code = K) 3.6 MMOL/L 3.6-5.2 N CHLORIDE (test code = CL) MMOL/L 98-110 CARBON DIOXIDE (test code = CO2) mEq/L 24-32 GLUCOSE (test code = GLU) mg/dL 70-110 BLOOD UREA NITROGEN (test code = 5 mg/dL 7-18 L BUN) GLOMERULAR FILTRATION RATE (test >60 code = GFR) CREATININE (test code = CREAT) mg/dL 0.60-1.30 CALCIUM (test code = CA) mg/dL 8.6-10.4 PROCALCITONIN (PCT)2019-11-27 10:06:00 Test Item Value Reference Range Interpretation Comments PROCALCITONIN (PCT) (test code = 3.35 ng/mL 0.00-0.50 H PROCAL) BASIC METABOLIC [id number] 08:15:00 Test Item Value Reference Range Interpretation Comments SODIUM (test code 139 mmol/L 136-145 N = NA) POTASSIUM (test 3.3 MMOL/L 3.6-5.2 L code = K) CHLORIDE (test 108 MMOL/L 98-110 N code = CL) CARBON DIOXIDE 24 mEq/L 24-32 N (test code = CO2) GLUCOSE (test code 101 mg/dL 70-110 N = GLU) BLOOD UREA 6 mg/dL 7-18 L NITROGEN (test code = BUN) GLOMERULAR >=60 max >60 The estimated FILTRATION RATE estimate glomerular (test code = GFR) filtration rate is computed usingpatient ra ce, age (>18), sex, and serum creatinin e. If anyof the neede d data elements a re missing the Laboratory shala ot compute an estimation of t he glomerular filtration rate . CREATININE (test 0.63 mg/dL 0.60-1.30 N code = CREAT) CALCIUM (test code 7.9 mg/dL 8.6-10.4 L = CA) BASIC METABOLIC [id number] 08:13:00 Test Item Value Reference Range Interpretation Comments SODIUM (test code = NA) mmol/L 136-145 POTASSIUM (test code = K) 3.3 MMOL/L 3.6-5.2 L CHLORIDE (test code = CL) MMOL/L 98-110 CARBON DIOXIDE (test code = CO2) mEq/L 24-32 GLUCOSE (test code = GLU) mg/dL 70-110 BLOOD UREA NITROGEN (test code = 6 mg/dL 7-18 L BUN) GLOMERULAR FILTRATION RATE (test >60 code = GFR) CREATININE (test code = CREAT) mg/dL 0.60-1.30 CALCIUM (test code = CA) mg/dL 8.6-10.4 CBC W/AUTO [id number] 08:12:00 Test Item Value Reference Range Interpretation Comments WHITE BLOOD CELL (test code = WBC) 7.31 K/mm3 5.0-12.0 N RED BLOOD CELL (test code = RBC) 3.39 M/mm3 4.20-5.40 L HEMOGLOBIN (test code = HGB) 8.0 G/DL 12.0-16.0 L HEMATOCRIT (test code = HCT) 24.8 % 36.0-46.0 L MEAN CELL VOLUME (test code = MCV) 73 fL 81-99 L MEAN CELL HGB (test code = MCH) 23.6 PGM 27-31 L MEAN CELL HGB CONCENTRATION (test 32.3 G/DL 33-37 L code = MCHC) RED CELL DISTRIBUTION WIDTH (test 16.4 % 11.6-16.2 H code = RDW) PLATELET COUNT (test code = PLT) 451 K/mm3 130-400 H MEAN PLATELET VOLUME (test code = 10.1 fl 7.4-10.4 N MPV) NEUTROPHIL % (test code = NT%) 70.6 % 43-65 H IMMATURE GRANULOCYTE % (test code 0.4 % 0.0-2.0 N = IG%) LYMPHOCYTE % (test code = LY%) 18.1 % 20.5-45.5 L MONOCYTE % (test code = MO%) 8.3 % 5.5-11.7 N EOSINOPHIL % (test code = EO%) 2.1 % 0.9-2.9 N BASOPHIL % (test code = BA%) 0.5 % 0.2-1.0 N NUCLEATED RBC % (test code = 0.0 % 0-1.0 N NRBC%) NEUTROPHIL # (test code = NT#) 5.16 K/mm3 2.2-4.8 H LYMPHOCYTE # (test code = LY#) 1.32 K/mm3 1.3-2.9 N MONOCYTE # (test code = MO#) 0.61 K/mm3 0.3-0.8 N EOSINOPHIL # (test code = EO#) 0.15 K/MM3 0.0-0.2 N BASOPHIL # (test code = BA#) 0.04 K/mm3 0.0-0.1 N BLOOD [id number] 07:56:00 Test Item Value Reference Range Interpretation Comments Culture Observations POSITIVE BLOOD CULTURE (test code = COB1) Culture Observations 1 OF 2 BOTTLES (test code = COB2) Isolate 1 (test code = Escherichia coli A ISO1) ampicillin/sulbactam R (test code = ams) piperacillin/tazobactam S (test code = tzp) ceftazidime (test code R = jaja) ceftriaxone1 (test code R = ctr) cefepime (test code = R fep) aztreonam (test code = R azm) ertapenem (test code = S etp) meropenem (test code = S mem) gentamicin (test code = R gm) tobramycin (test code = I tob) levofloxacin (test code R = lev) trimethoprim/sulfametho R xazole (test code = sxt) URINE [id number] 12:02:00 Test Item Value Reference Range Interpretation Comments Isolate 1 (test code = ISO1) Escherichia coli A piperacillin/tazobactam ug/mL S (test code = tzp) ceftazidime (test code = ug/mL R jaja) ceftriaxone1 (test code = ug/mL R ctr) cefepime (test code = fep) ug/mL R aztreonam (test code = azm) ug/mL R ertapenem (test code = etp) ug/mL S meropenem (test code = mem) ug/mL S gentamicin (test code = gm) ug/mL R tobramycin (test code = tob) ug/mL S levofloxacin (test code = ug/mL R lev) trimethoprim/sulfamethoxazol ug/mL R e (test code = sxt) PROTHROMBIN [id number] 09:58:00 Test Item Value Reference Range Interpretation Comments PROTHROMBIN TIME 25.7 SECONDS 9.5-12.9 H PATIENT (test code = PTP) INTERNATIONAL NORMAL 2.3 0.85-1.15 H The INR is to be used RATIO (test code = only for monitoring INR) ORAL ANTICOAGULANTTH ERAPY. Indicati on INR Value1. Prophylaxis/darian atment of: Venous Thrombosis, Pul monary Embolism 2.0 - 3.02. Preventi on of systemic emboli sm from: Tiss ue heart valves 2.0 - 3.0 Acute myocardial infa rction (to present systemic emboli sm)* 2.0 - 3.0 Valvular heart disease 2.0 - 3.0 Atrial fibrillation 2.0 - 3.03. Cadd Manager al prosthetic valv es (high risk) 2.5 - 3.5 * If oral anticoagulant t herapy is elected to preventrecurren t myocardial infa rction, an INR of 2.5-3 .5 isrecommended, consistent with Food and Drug Administrationr ecommen dations. THROMBOPLASTIN TIME [id number] 09:58:00 Test Item Value Reference Range Interpretation Comments THROMBOPLASTIN TIME PARTIAL (test 58 SECONDS 25.1-36.5 H code = PTT) UA RFLX MICR CULT IF [id number] 17:35:00 Test Item Value Reference Range Interpretation Comments UA COLOR (test code = COLU) YELLOW YELLOW UA APPEARANCE (test code = CLOUDY CLEAR A APPU) UA GLUCOSE DIPSTICK (test code NEGATIVE MG/AL NEGATIVE = DGLUU) UA BILIRUBIN DIPSTICK (test NEGATIVE NEGATIVE code = BILU) UA KETONE DIPSTICK (test code 15 (1+) MG/DL NEGATIVE = KETU) UA SPECIFIC GRAVITY (test code >=1.030 1.000-1.030 A = SGU) UA BLOOD DIPSTICK (test code = 1+ NEGATIVE A HUYEN) UA PH DIPSTICK (test code = 6.0 4.5-8.5 FANTASMA) UA PROTEIN DIPSTICK (test code 100 (2+) NEGATIVE A = PROU) UA UROBILINOGEN DIPSTICK (test 1.0 EU/dL <=1.0 code = URO) UA NITRITE DIPSTICK (test code POSITIVE NEGATIVE A = TRACIE) UA LEUKOCYTE ESTERASE DIPSTICK 3+ NEGATIVE (test code = LEUU) UA WBC (test code = WBCU) /HPF 0-3 UA RBC (test code = RBCU) /HPF 0-3 UA EPITHELIAL CELLS (test code /LPF NONE-FEW = EPIU) UA BACTERIA (test code = BACU) /HPF NEGATIVE Indication for culture: Flank PainUA RFLX MICR CULT IF [id number] 17:35:00 Test Item Value Reference Range Interpretation Comments UA COLOR (test code = COLU) YELLOW YELLOW UA APPEARANCE (test code = CLOUDY CLEAR A APPU) UA GLUCOSE DIPSTICK (test code NEGATIVE MG/AL NEGATIVE = DGLUU) UA BILIRUBIN DIPSTICK (test NEGATIVE NEGATIVE code = BILU) UA KETONE DIPSTICK (test code 15 (1+) MG/DL NEGATIVE = KETU) UA SPECIFIC GRAVITY (test code >=1.030 1.000-1.030 A = SGU) UA BLOOD DIPSTICK (test code = 1+ NEGATIVE A HUYEN) UA PH DIPSTICK (test code = 6.0 4.5-8.5 FANTASMA) UA PROTEIN DIPSTICK (test code 100 (2+) NEGATIVE A = PROU) UA UROBILINOGEN DIPSTICK (test 1.0 EU/dL <=1.0 code = URO) UA NITRITE DIPSTICK (test code POSITIVE NEGATIVE A = TRACIE) UA LEUKOCYTE ESTERASE DIPSTICK 3+ NEGATIVE (test code = LEUU) UA WBC (test code = WBCU) >100 /HPF 0-3 A UA RBC (test code = RBCU) 5-10 /HPF 0-3 A UA EPITHELIAL CELLS (test code FEW /LPF NONE-FEW = EPIU) UA BACTERIA (test code = BACU) 2+ /HPF NEGATIVE A Indication for culture: Flank Pain- CT ABD PELVIS [id number] 16:44:00 Patient Name: JESUS STANTON Unit No: [id number] EXAMS: CPT: [id number] CT ABD PELVIS W/CONT [id number] CT ABDOMEN AND PELVIS WITH CONTRAST: History: Abdominal pain COMPARISON:None Technique:Contiguous axial images through the abdomen and pelvis performed with intravenous contrast. Multiplanar reformats performed. CT radiation doseoptimization is achieved for this examination by the use of a CT protocol in accordance with ACR practice standards and adherence to manufacturers recommendations One or more of the following dose reduction techniques were used: Automated exposure control, adjustment of the mA and/or KV according to patient size, and/or utilization of iterative reconstruction technique. Findings: Lung bases are clear. Patient has a right ureteral stent with the proximal loop in the renal pelvis and the distal loop in the urinary bladder. Multifocal lobar nephronia/pyelonephritis changes are present with a right upper pole subcapsular fluid collection measuring 16 x 8 mm. Perinephric edema is noted. There is no hydronephrosis. No obstructing stone is seen. Left kidney is normal in morphology. Cholecystectomy. Liver, adrenal glands and spleen are unremarkable. No findings of bowel obstruction or mesenteric inflammation. No free fluid or free air seen. No pathologically enlarged lymph nodes evident. Appendix is visualized and is normal in appearance. Aorta is normal in caliber. Portal vein is patent. Urinary bladder is unremarkable. No pelvicmass or inflammation seen. No gross osseous pathology evident.Impression: Right pyelonephritis with subcapsular abscess. Right ureteral stent in ex pected position with no hydronephrosis. at 1644 Reported and signed by: Jaspreet Currie MD Name: JESUS STANTON Edward Phys: VUCHR.Rian [address] [facility] : 1980 Age: 39 [facility]: F [id number] Loc: T.ERS Exam Date: 11/24/2019 Status: REG ER PH: FAX: PAGE 1 Signed Report (CONTINUED) Patient Name: JESUS STANTON Unit No: [id number] EXAMS: CPT: [id number] CT ABD PELVIS W/CONT 14316 <Continued> CC: Rian Augustine MD Technologist: Malorie Lacy CTDI: 9.6 DLP: 520.8 Trscr Dt/Tm: 11/24/2019 (1643) by:[email or web address] Orig Print D/T: S: 11/24/2019 (1646) BATCH NO: N/A Name: JESUS STANTON Edward Phys: VUCHR.Rian [address] [facility] : 1980 Age: 39 Sex: F Sallie Leon Loc: T.ERS Exam Date: 11/24/2019 Status: REG ER PH: FAX: PAGE 2 Signed ReportCBC W/AUTO [id number] 15:36:00 Test Item Value Reference Range Interpretation Comments WHITE BLOOD CELL (test 26.61 K/mm3 5.0-12.0 Criti alejandro Value code = WBC) reported toFirs t Name:TAMIE Last Name:FARIDA LOPEZ/ROBYN RE AD BACK AND ESTEPHANIE [facility]erre[facility], on 01/12/20, @ 153 6. RED BLOOD CELL (test 3.83 M/mm3 4.20-5.40 L code = RBC) HEMOGLOBIN (test code = 9.1 G/DL 12.0-16.0 L HGB) HEMATOCRIT (test code = 29.0 % 36.0-46.0 L HCT) MEAN CELL VOLUME (test 76 fL 81-99 L code = MCV) MEAN CELL HGB (test 23.8 PGM 27-31 L code = MCH) MEAN CELL HGB 31.4 G/DL 33-37 L CONCENTRATION (test code = MCHC) RED CELL DISTRIBUTION 16.4 % 11.6-16.2 H WIDTH (test code = RDW) PLATELET COUNT (test 414 K/mm3 130-400 H code = PLT) MEAN PLATELET VOLUME 9.5 fl 7.4-10.4 N (test code = MPV) NEUTROPHIL % (test code 82.4 % 43-65 H = NT%) IMMATURE GRANULOCYTE % 2.8 % 0.0-2.0 H (test code = IG%) LYMPHOCYTE % (test code 7.1 % 20.5-45.5 L = LY%) MONOCYTE % (test code = 7.3 % 5.5-11.7 N MO%) EOSINOPHIL % (test code 0.1 % 0.9-2.9 L = EO%) BASOPHIL % (test code = 0.3 % 0.2-1.0 N BA%) NUCLEATED RBC % (test 0.0 % 0-1.0 N code = NRBC%) NEUTROPHIL # (test code 21.91 K/mm3 2.2-4.8 H = NT#) LYMPHOCYTE # (test code 1.90 K/mm3 1.3-2.9 N = LY#) MONOCYTE # (test code = 1.94 K/mm3 0.3-0.8 H MO#) EOSINOPHIL # (test code 0.02 K/MM3 0.0-0.2 N = EO#) BASOPHIL # (test code = 0.09 K/mm3 0.0-0.1 N BA#) BNP [id number] 15:31:00 Test Item Value Reference Range Interpretation Comments BNP RAPID (test code = BNPRAP) < 15 pg/mL 0.0-100.0 N TROPONIN I [id number] 15:27:00 Test Item Value Reference Range Interpretation Comments TROPONIN I RAPID 0.00 ng/mL 0.00-0.08 N ISTAT (test code = TROPONIN I TROPIRAP) CRITERIA0.00-0. 08 ng/mL - Negative>0.08 n g/mL - Positive The us e of serial sampling and te sting protocol is are commended practice.An morro vated troponin level alone is often not suffi cient fordiagnosis of myocardial infarction. Tro ponin results obtaine d by different assay s may vary.Evaluation of the extent of myoca rdial damage based on increase of troponin would be valid only if similar methodology is used. CHEMISTRY 8 [id number] 15:25:00 Test Item Value Reference Range Interpretation Comments SODIUM POC (test code = NAP) mmol/L 138-146 N POTASSIUM POC (test code = KP) mmol/L 3.5-4.9 N CHLORIDE POC (test code = CLP) mmol/L 98-109 CO2 POC (test code = CO2P) mmol/L 24-29 IONIZED CALCIUM POC (test code = mmol/L 1.10-1.32 L CAIP) GLUCOSE POC (test code = GLUP) MG/DL 70-105 N BUN POC (test code = BUNP) mg/dL 8-26 N CREATININE POC (test code = CREATP) mg/dL 0.6-1.3 N GLOMERULAR FILTRATION RATE POC (test 84 64-149 N code = GFRP) CHEMISTRY 8 [id number] 15:25:00 Test Item Value Reference Range Interpretation Comments SODIUM POC (test code = NAP) 138 mmol/L 138-146 N POTASSIUM POC (test code = KP) 3.7 mmol/L 3.5-4.9 N CHLORIDE POC (test code = CLP) 104 mmol/L 98-109 N CO2 POC (test code = CO2P) 23 mmol/L 24-29 L IONIZED CALCIUM POC (test code = 1.01 mmol/L 1.10-1.32 L CAIP) GLUCOSE POC (test code = GLUP) 101 MG/DL 70-105 N BUN POC (test code = BUNP) 8 mg/dL 8-26 N CREATININE POC (test code = 0.9 mg/dL 0.6-1.3 N CREATP) GLOMERULAR FILTRATION RATE POC 84 64-149 N (test code = GFRP) LACTIC ACID [id number] 15:19:00 Test Item Value Reference Range Interpretation Comments LACTIC ACID POC (test code = 0.84 mmol/L 0.36-1.25 N LACTP) U/S KIDNEY (RENAL)2019-11-24 11:14:07RENAL ULTRASOUNDLocation Code: [id number] HISTORY: Right flank painCOMPARISON: CT dated 11/17/19COMMENT: Potts scale and selective color Doppler sonographic imaging of thekidneys was performed.The rightkidney is heterogeneous with ill-defined masslike vascular corticallesion measuring 2.6 x 1.9 x 1.3 cm. There is no hydronephrosis. The left kidney is of normal echogenicity with no focal mass, calcification, orhydronephrosis and measures 9.2 x 5.4 x 4.4 cm. Cortical thickness is normal oneach side.The bladder is unremarkable. IMPRESSION: 1. Ill-defined masslike heterogeneous hypoechoic lesion along the upper polethe right kidney may represent focal pyelonephritis. There is no hydronephrosisor perinephric collection.CBC WITH MANUAL [id number] 10:08:00 Test Item Value Reference Range Interpretation Comments WBC (test code = 28.3 10\S\3/uL 4.5-11.0 HH WBC) RBC (test code = 4.56 10\S\6/uL 4.30-5.70 RBC) HGB (test code = 11.0 g/dL 12.0-15.5 L HBG) HCT (test code = 33.7 % 35.0-44.0 L HCT) MCV (test code = 73.9 fL 81.0-99.0 L MCV) MCH (test code = 24.1 pg 27.0-31.0 L MCH) MCHC (test code = 32.6 g/dL 32.0-36.0 MCHC) RDW (test code = 16.6 % 11.5-14.5 H RDW) PLT (test code = 488 10\S\3/uL 130-400 H PLT) MPV (test code = 9.4 fL 9.4-12.4 MPV) NEUTROP # (test 23.1 10\S\3/uL 1.6-8.0 H code = NE#) LYMPH # (test 2.0 10\S\3/uL 1.1-3.5 code = LY#) MONOCYTE # (test 2.7 10\S\3/uL 0.0-1.1 H code = MO#) EOSINOPH # (test 0.0 10\S\3/uL 0.0-0.7 code = EO#) BASOPHIL # (test 0.1 10\S\3/uL 0.0-0.3 code = BA#) IG # (test code = 0.46 10\S\3/uL 0.00-0.06 H IG#) NRBC # (test code 0.00 10\S\3/uL 0.00-0.01 = NRBC#) NEUTROPH % (test 81.6 % 35.0-73.0 H code = NE%) LYMPH % (test 6.9 % 20.0-55.0 L code = LY%) MONO % (test code 9.6 % 2.5-10.0 = MO%) EOSINOPH % (test 0.0 % 0.0-5.0 code = EO%) BASOPHIL % (test 0.3 % 0.0-2.0 code = BA%) IG % (test code = 1.6 % 0.0-0.8 H IG%) NRBC% (test code 0.0 % 0.0-0.2 = NRBC%) MAN DIFF (test MANUAL code = HMDIFF) DIFFERENTIAL SEG (test code = 78 % 42-75 H hypersegmen freddy SEG) neutrophils see n BAND (test code = 3 % 0-8 BAND) LYMPH (test code 9 % 20-51 L = LYMPH) MONO (test code = 10 % 3-11 MONO) EOS (test code = 0 % 0-10 EOS) BASO (test code = 0 % 0-2 BASO) RBC MORPH (test ABNORMAL NORMAL A code = RBCMORN) PLT EST (test INCREASED ADEQUATE A code = PLTEST) PLT MORPH (test NORMAL (1.5-3 NORMAL few large p latelets code = PLTMOR) um) seen ANISO (test code 1+ NONE A = ANISO) HYPOCHROM (test 1+ NONE A code = HYPOC) MICROCYTIC (test 1+ NONE A code = MICRO) VACUOLES (test PRESENT NONE A code = VAC) LACTIC [id number] 09:58:00 Test Item Value Reference Range Interpretation Comments LACTIC ACD (test code = LA) 1.2 mmol/L 0.4-2.0 URINALYSIS WITH [id number] 09:57:00 Test Item Value Reference Range Interpretation Comments COLOR (test code = COLU) DK YELLOW YELLOW A CLARITY (test code = CLA) TURBID CLEAR A GLUCOSE UR (test code = UA NEGATIVE NEGATIVE GLUCOSE) BILI UR (test code = BILE) NEGATIVE NEGATIVE KETONES UR (test code = CARRINGTON) 3+ NEGATIVE A SP GRAVITY (test code = SPGR) 1.021 1.005-1.030 PH UR (test code = PH) 6.0 4.5-8.0 PROTEIN UR (test code = PU) 2+ NEGATIVE A UROBIL UR (test code = UROQ) 1.0 EU/dL 0.2-1.0 NITRITE UR (test code = POSITIVE NEGATIVE A NITRITE) BLOOD UR (test code = UA BLOOD) 1+ NEGATIVE A LEUK ES UR (test code = LEUK) 3+ NEGATIVE A WBC UR (test code = UWBC) 30 /HPF 0-5 H RBC UR (test code = URBC) 3 /HPF 0-2 H EPITH UR (test code = UEPC) FEW /LPF FEW BACTERIA UR (test code = UBACT) MODERATE /HPF NONE A CAST UR (test code = CAST) /LPF NONE CRYSTAL UR (test code = CRYU) / LPF NONE MUCUS UR (test code = MUC) FEW / HPF NONE A AMORPH UR (test code = JENNY) / HPF NONE TRICH UR (test code = UTRICH) /HPF NONE YEAST UR (test code = UY) /HPF NONE SPERM UR (test code = USPERM) /HPF NONE AMYLASE AND [id number] 09:55:00 Test Item Value Reference Range Interpretation Comments AMYLASE (test code = 10A) 35 U/L 28-100 LIPASE (test code = 60A) 56 IU/L 73-393 L COMPREHENSIVE METABOLIC [id number] 09:55:00 Test Item Value Reference Range Interpretation Comments GLUCOSE (test code = 06D) 102 mg/dL 75-100 H SODIUM (test code = 01A) 135 mmol/L 136-145 L POTASSIUM (test code = 01B) 3.6 mmol/L 3.6-5.1 CHLORIDE (test code = 04A) 103 mmol/L 98-107 CO2 (test code = 02A) 22 mmol/L 22-32 ANION GAP (test code = ANG) 13.6 mmol/L BUN (test code = 05D) 6 mg/dL 7-18 L CREATININE (test code = 03E) 0.9 mg/dL 0.4-1.1 BUN/CREA (test code = BCR) 7 12-20 L CALCIUM (test code = 09D) 8.8 mg/dL 8.3-9.5 BILI TOTAL (test code = 11A) 0.7 mg/dL 0.2-1.0 PROTEIN (test code = 07D) 8.2 g/dL 6.4-8.2 ALBUMIN (test code = 08D) 3.0 g/dL 3.5-4.8 L GLOBULIN (test code = GLB) 5.2 g/dL 1.5-3.8 H ALB/GLOB (test code = AGRR) 0.6 1.0-2.6 L ALK PHOS (test code = 35A) 83 IU/L 42-121 AST (test code = 30A) 16 IU/L <=42 ALT (test code = 31A) 27 IU/L <=78 XR ABDOMEN AP 1 VIEW [id number] 09:52:05Abdomen, 1 viewLocation Code: [id number] history: Right flank painComparison: CT dated 11/17/19Comments: Right ureteral stent is noted. There is no appreciable calculus. Thebowel gas pattern is unremarkable. There is no visualized abnormalcalcification. The visualized osseous structures are intact.Impression: Right ureteral stent in place. Otherwise, no acute radiographic abnormality. URINE MONOCLONAL 2019-11-24 09:42:00 Test Item Value Reference Range Interpretation Comments PREG UR (test code = PGU) NEGATIVE NEGATIVE BLOOD [id number] 07:31:00 Test Item Value Reference Range Interpretation Comments Culture Observations (test NO GROWTH AFTER 5 code = COB1) DAYS BLOOD [id number] 07:31:00 Test Item Value Reference Range Interpretation Comments Culture Observations (test NO GROWTH AFTER 5 code = COB1) DAYS CBC W/AUTO [id number] 05:35:00 Test Item Value Reference Range Interpretation Comments WHITE BLOOD CELL (test code = 16.5 K/MM3 3.8-9.8 H WBC) RED BLOOD CELL (test code = 3.61 M/MM3 3.58-4.97 N RBC) HEMOGLOBIN (test code = HGB) 8.8 G/DL 11.2-14.9 L HEMATOCRIT (test code = HCT) 28.4 % 33.2-43.5 L MEAN CELL VOLUME (test code = 79 fL 80.7-99.1 L MCV) MEAN CELL HGB (test code = MCH) 24.4 pg 27.0-34.1 L MEAN CELL HGB CONCETRATION 31.0 % 32.2-35.7 L (test code = MCHC) RED CELL DISTRIBUTION WIDTH 16.2 % 12.1-15.2 H (test code = RDW) PLATELET COUNT (test code = 350 K/MM3 129-368 N PLT) MEAN PLATELET VOLUME (test code 10.3 fl 7.4-10.4 N = MPV) NEUTROPHIL % (test code = NT%) 73.1 % 43-75 N IMMATURE GRANULOCYTE % (test 0.5 % 0.0-2.0 N code = IG%) LYMPHOCYTE % (test code = LY%) 15.2 % 14-44 N MONOCYTE % (test code = MO%) 10.2 % 4-13 N EOSINOPHIL % (test code = EO%) 0.7 % 0-6 N BASOPHIL % (test code = BA%) 0.3 % 0-2 N NUCLEATED RBC % (test code = 0.0 % 0-1.0 N NRBC%) NEUTROPHIL # (test code = NT#) 12.08 K/mm3 2.0-7.6 H IMMATURE GRANULOCYTE # (test 0.08 x10 3/uL 0-0.03 H code = IG#) LYMPHOCYTE # (test code = LY#) 2.50 K/mm3 1.0-3.8 N MONOCYTE # (test code = MO#) 1.68 K/mm3 0.1-0.8 H EOSINOPHIL # (test code = EO#) 0.11 K/mm3 0.0-0.2 N BASOPHIL # (test code = BA#) 0.05 K/mm3 0.0-0.2 N NUCLEATED RBC # (test code = 0.00 K/mm3 0.0-0.1 N NRBC#) URINE [id number] 10:09:00 Test Item Value Reference Range Interpretation Comments Culture Observations THREE OR MORE SPECIES (test code = COB1) OF BACTERIA ISOLATED. PROBABLE CONTAMINATION. Culture Observations IDENTIFICATION AND (test code = COB17) SUSCEPTIBILITY NOT INDICATED. RECOLLECTION RECOMMENDED Isolate 1 (test code = Escherichia coli A ISO1) ampicillin/sulbactam ug/mL I (test code = ams) piperacillin/tazobacta ug/mL S m (test code = tzp) ceftazidime (test code ug/mL R = jaja) ceftriaxone1 (test ug/mL R code = ctr) cefepime (test code = ug/mL R fep) aztreonam (test code = ug/mL R azm) ertapenem (test code = ug/mL S etp) meropenem (test code = ug/mL S mem) gentamicin (test code ug/mL R = gm) tobramycin (test code ug/mL S = tob) levofloxacin (test ug/mL R code = lev) trimethoprim/sulfameth ug/mL R oxazole (test code = sxt) BASIC METABOLIC [id number] 06:58:00 Test Item Value Reference Range Interpretation Comments SODIUM (test code = 138 MMOL/L 137-145 N NA) POTASSIUM (test code = 4.2 MMOL/L 3.5-5.1 N K) CHLORIDE (test code = 107 MMOL/L 98-107 N CL) CARBON DIOXIDE (test 23 MMOL/L 22-30 N code = CO2) GLUCOSE (test code = 134 MG/DL 74-106 H GLU) BLOOD UREA NITROGEN 5 MG/DL 7-17 L (test code = BUN) GLOMERULAR FILTRATION > 60 Report ing units: RATE (test code = GFR) ml/mi n/1.73 m2 (Modified MDRD Formula)Referen ce Range: > or = 6 0 ml/min/1.73 m2 CREATININE (test code 0.60 MG/DL 0.52-1.04 N = CREAT) CALCIUM (test code = 8.6 MG/DL 8.4-10.2 N CA) BASIC METABOLIC [id number] 06:55:00 Test Item Value Reference Range Interpretation Comments SODIUM (test code = NA) 138 MMOL/L 137-145 N POTASSIUM (test code = K) 4.2 MMOL/L 3.5-5.1 N CHLORIDE (test code = CL) 107 MMOL/L 98-107 N CARBON DIOXIDE (test code = CO2) MMOL/L 22-30 GLUCOSE (test code = GLU) MG/DL 74-106 BLOOD UREA NITROGEN (test code = MG/DL 7-17 BUN) GLOMERULAR FILTRATION RATE (test code = GFR) CREATININE (test code = CREAT) MG/DL 0.52-1.04 CALCIUM (test code = CA) MG/DL 8.7-9.7 CBC W/AUTO [id number] 06:38:00 Test Item Value Reference Range Interpretation Comments WHITE BLOOD CELL (test code = 23.3 K/MM3 3.8-9.8 H WBC) RED BLOOD CELL (test code = 3.80 M/MM3 3.58-4.97 N RBC) HEMOGLOBIN (test code = HGB) 9.3 G/DL 11.2-14.9 L HEMATOCRIT (test code = HCT) 30.0 % 33.2-43.5 L MEAN CELL VOLUME (test code = 79 fL 80.7-99.1 L MCV) MEAN CELL HGB (test code = MCH) 24.5 pg 27.0-34.1 L MEAN CELL HGB CONCETRATION 31.0 % 32.2-35.7 L (test code = MCHC) RED CELL DISTRIBUTION WIDTH 16.2 % 12.1-15.2 H (test code = RDW) PLATELET COUNT (test code = 294 K/MM3 129-368 N PLT) MEAN PLATELET VOLUME (test code 10.4 fl 7.4-10.4 N = MPV) NEUTROPHIL % (test code = NT%) 88.0 % 43-75 H IMMATURE GRANULOCYTE % (test 1.0 % 0.0-2.0 N code = IG%) LYMPHOCYTE % (test code = LY%) 4.9 % 14-44 L MONOCYTE % (test code = MO%) 5.9 % 4-13 N EOSINOPHIL % (test code = EO%) 0.0 % 0-6 N BASOPHIL % (test code = BA%) 0.2 % 0-2 N NUCLEATED RBC % (test code = 0.0 % 0-1.0 N NRBC%) NEUTROPHIL # (test code = NT#) 20.55 K/mm3 2.0-7.6 H IMMATURE GRANULOCYTE # (test 0.23 x10 3/uL 0-0.03 H code = IG#) LYMPHOCYTE # (test code = LY#) 1.14 K/mm3 1.0-3.8 N MONOCYTE # (test code = MO#) 1.38 K/mm3 0.1-0.8 H EOSINOPHIL # (test code = EO#) 0.00 K/mm3 0.0-0.2 N BASOPHIL # (test code = BA#) 0.04 K/mm3 0.0-0.2 N NUCLEATED RBC # (test code = 0.00 K/mm3 0.0-0.1 N NRBC#) - XR CYSTOURETHRO [id number] 17:09:00 Patient Name: JESUS STANTON Unit No: [id number] EXAMS: CPT CODE: [id number] XR CYSTOURETHRO RETRO 21039 DICTATION LOCATION: [facility] HISTORY: Female, 39 years of age with kidney stones, pyelonephritis, right cystoscopy and stent PROCEDURE: MULTIPLE VIEWS OF THE ABDOMEN, INTRAOPERATIVE WITH C-ARM COMPARISON: Correlation made with CT abdomen and pelvis without contrast performed 4 hours prior COMMENT: A total of 5images were performed intraoperatively with the C-arm. Radiologist was not present during thisprocedure. Sequence of images showed retrograde placement of a double-J stent in the right ureter in apparent satisfactory position. IMPRESSION: A right double-J stent hasbeen placed intraoperatively. Fluoroscopy time: 23.4 seconds at 1709 Reported and signed by: Celina Elizalde MD CC: Tato Martin; Lit Laughlin Technologist:Yue Horvath, RT(R) Transcrpt Date/Tm/Trnsp: 11/18/2019 (1709) Narcisa Orig Print D/T: S: 11/18/2019 (8139) [facility] NAME: JESUS STANTON [id number] PHYS: COSMO. [place] [address] : 1980 AGE: 39 SEX: F LOC: Z.330 A PHONE #: [phone] EXAM DATE: 11/18/2019 STATUS: ADM IN FAX #: [phone] RADIOLOGY NO: PAGE 1 Signed ReportHCG SERUM [id number] 13:22:00 Test Item Value Reference Range Interpretation Comments HCG SERUM QUAL (test code = HCGQL) NEGATIVE NEGATIVE A - CT ABD PELVIS W/O [id number] 10:43:00 Patient Name: JESUS STANTON Unit No: [id number] EXAMS: CPT CODE: [id number] CT ABD PELVIS W/O CONT 70307 LOCATION: T18 EXAM: CT ABDOMEN AND PELVIS WITHOUT CONTRAST INDICATION: RENAL STONE COMPARISON: None. TECHNIQUE: Multiple CT images of the abdomen and pelvis were obtained with reconstructions in the coronal and sagittal planes. No intravenous contrast was given. Up-to-date CT equipment and radiation dose reduction techniques were utilized. Automatic exposure control was utilized. FINDINGS: Small dependent right pleural effusion and bibasilar subsegmental atelectasis present. Liver and spleen are normal in appearance. Adrenal glands and pancreas normal. Gallbladder removed. Mid pole right renal stone resume 2.5 mm in size. Right perinephric stranding and mild right hydronephrosis. There is no hydroureter or ureteral stone. Stone at the left UVJ measures 3 mm in size. Tubular fluid-filled distended structure of the left adnexa concerning for hydrosalpinx. Uterus is normal in appearance. Appendix is normal. There is no evidence for acute appendicitis. No free air or free fluid is present. No bowel obstruction is seen. Bones are intact. Peripheral soft tissues are normal. IMPRESSION: 1. Right perinephric fat stranding with midpole right renal stonemeasuring 2.5 mm. There is mild right hydronephrosis. 2. Left UVJ stone measuring 3 mm. No left-sided hydronephrosis or hydroureter. 3. Small dependent right pleural effusion with bibasilar subsegmental atelectasis. at 1043 Reported and signed by: Sangita Gamino MD CC: Tato Martin; Lit Laughlin Technologist: Lit Ca, RT(R); Ángel Bonilla CTDI: DLP: Trnscrpt: 11/18/2019 (1043) [id number] [facility] NAME: JESUS STANTON [id number] PHYS: COSMO.Luís - Lit Laughlin MD [place] [id number] : 1980 AGE: 39 SEX: F LOC: Z.330 A PHONE #: [phone] EXAM DATE: 11/18/2019 STATUS: ADM IN FAX #: [phone] RAD #: D/C DT PAGE 1 Signed Report Patient Name: JESUS STANTON Unit No: [id number] EXAMS: CPT CODE: [id number] CT ABD PELVIS W/O CONT [id number] <Continued> Orig Print D/T: S: 11/18/2019 (104) [facility] NAME: JESUS STANTON[address] PHYS: COSMO. - Lit Laughlin MD [place] [id number] : 1980 AGE: 39 SEX: F LOC: Z.330 A PHONE #: [phone] EXAM DATE: 11/18/2019 STATUS: ADM IN FAX #: [phone] RAD #: D/C DT PAGE 2 Signed ReportUR HCG [id number] 09:28:00 Test Item Value Reference Range Interpretation Comments UR HCG QUAL (test code = HCGQLU) NEGATIVE NEGATIVE BASIC METABOLIC [id number] 07:56:00 Test Item Value Reference Range Interpretation Comments SODIUM (test code = 137 MMOL/L 137-145 N NA) POTASSIUM (test code = 4.0 MMOL/L 3.5-5.1 N K) CHLORIDE (test code = 109 MMOL/L 98-107 H CL) CARBON DIOXIDE (test 19 MMOL/L 22-30 L code = CO2) GLUCOSE (test code = 120 MG/DL 74-106 H GLU) BLOOD UREA NITROGEN 3 MG/DL 7-17 L (test code = BUN) GLOMERULAR FILTRATION > 60 Report ing units: RATE (test code = GFR) ml/mi n/1.73 m2 (Modified MDRD Formula)Referen ce Range: > or = 6 0 ml/min/1.73 m2 CREATININE (test code 0.60 MG/DL 0.52-1.04 N = CREAT) CALCIUM (test code = 8.0 MG/DL 8.4-10.2 L CA) [id number] 07:56:00 Test Item Value Reference Range Interpretation Comments PHOSPHOROUS (test code = PHOS) 1.5 MG/DL 2.5-4.5 L [id number] 07:56:00 Test Item Value Reference Range Interpretation Comments MAGNESIUM (test code = MAG) 1.6 MG/DL 1.6-2.3 N BASIC METABOLIC [id number] 07:55:00 Test Item Value Reference Range Interpretation Comments SODIUM (test code = 137 MMOL/L 137-145 N NA) POTASSIUM (test code = 4.0 MMOL/L 3.5-5.1 N K) CHLORIDE (test code = 109 MMOL/L 98-107 H CL) CARBON DIOXIDE (test 19 MMOL/L 22-30 L code = CO2) GLUCOSE (test code = 120 MG/DL 74-106 H GLU) BLOOD UREA NITROGEN 3 MG/DL 7-17 L (test code = BUN) GLOMERULAR FILTRATION > 60 Report ing units: RATE (test code = GFR) ml/mi n/1.73 m2 (Modified MDRD Formula)Referen ce Range: > or = 6 0 ml/min/1.73 m2 CREATININE (test code 0.60 MG/DL 0.52-1.04 N = CREAT) CALCIUM (test code = 8.0 MG/DL 8.4-10.2 L CA) [id number] 07:55:00 Test Item Value Reference Range Interpretation Comments PHOSPHOROUS (test code = PHOS) 1.5 MG/DL 2.5-4.5 L [id number] 07:55:00 Test Item Value Reference Range Interpretation Comments MAGNESIUM (test code = MAG) MG/DL 1.6-2.3 BASIC METABOLIC [id number] 07:52:00 Test Item Value Reference Range Interpretation Comments SODIUM (test code = NA) 137 MMOL/L 137-145 N POTASSIUM (test code = K) 4.0 MMOL/L 3.5-5.1 N CHLORIDE (test code = CL) 109 MMOL/L 98-107 H CARBON DIOXIDE (test code = CO2) MMOL/L 22-30 GLUCOSE (test code = GLU) MG/DL 74-106 BLOOD UREA NITROGEN (test code = MG/DL 7-17 BUN) GLOMERULAR FILTRATION RATE (test code = GFR) CREATININE (test code = CREAT) MG/DL 0.52-1.04 CALCIUM (test code = CA) MG/DL 8.7-9.7 [id number] 07:52:00 Test Item Value Reference Range Interpretation Comments PHOSPHOROUS (test code = PHOS) MG/DL 2.5-4.5 [id number] 07:52:00 Test Item Value Reference Range Interpretation Comments MAGNESIUM (test code = MAG) MG/DL 1.6-2.3 CBC W/AUTO [id number] 07:42:00 Test Item Value Reference Range Interpretation Comments WHITE BLOOD CELL (test code = 19.8 K/MM3 3.8-9.8 H WBC) RED BLOOD CELL (test code = 3.88 M/MM3 3.58-4.97 N RBC) HEMOGLOBIN (test code = HGB) 9.5 G/DL 11.2-14.9 L HEMATOCRIT (test code = HCT) 30.8 % 33.2-43.5 L MEAN CELL VOLUME (test code = 79 fL 80.7-99.1 L MCV) MEAN CELL HGB (test code = MCH) 24.5 pg 27.0-34.1 L MEAN CELL HGB CONCETRATION 30.8 % 32.2-35.7 L (test code = MCHC) RED CELL DISTRIBUTION WIDTH 16.0 % 12.1-15.2 H (test code = RDW) PLATELET COUNT (test code = 278 K/MM3 129-368 N PLT) MEAN PLATELET VOLUME (test code 9.8 fl 7.4-10.4 N = MPV) NEUTROPHIL % (test code = NT%) 77.1 % 43-75 H IMMATURE GRANULOCYTE % (test 0.8 % 0.0-2.0 N code = IG%) LYMPHOCYTE % (test code = LY%) 10.2 % 14-44 L MONOCYTE % (test code = MO%) 10.8 % 4-13 N EOSINOPHIL % (test code = EO%) 0.7 % 0-6 N BASOPHIL % (test code = BA%) 0.4 % 0-2 N NUCLEATED RBC % (test code = 0.0 % 0-1.0 N NRBC%) NEUTROPHIL # (test code = NT#) 15.24 K/mm3 2.0-7.6 H IMMATURE GRANULOCYTE # (test 0.16 x10 3/uL 0-0.03 H code = IG#) LYMPHOCYTE # (test code = LY#) 2.02 K/mm3 1.0-3.8 N MONOCYTE # (test code = MO#) 2.14 K/mm3 0.1-0.8 H EOSINOPHIL # (test code = EO#) 0.14 K/mm3 0.0-0.2 N BASOPHIL # (test code = BA#) 0.07 K/mm3 0.0-0.2 N NUCLEATED RBC # (test code = 0.00 K/mm3 0.0-0.1 N NRBC#) URINALYSIS [id number] 00:34:00 Test Item Value Reference Range Interpretation Comments UA COLOR (test code = YELLOW YELLOW COLU) UA APPEARANCE (test code CLEAR CLEAR = APPU) UA GLUCOSE DIPSTICK (test NORMAL MG/DL NORMAL code = DGLUU) UA BILIRUBIN DIPSTICK NEGATIVE MG/DL NEGATIVE (test code = BILU) UA KETONE DIPSTICK (test NEGATIVE MG/DL NEGATIVE code = KETU) UA SPECIFIC GRAVITY (test 1.010 1.003-1.030 N code = SGU) UA BLOOD DIPSTICK (test 150 Florian/mm3 NEGATIVE A code = HUYEN) UA PH DIPSTICK (test code 8.0 5.0-9.0 N = FANTASMA) UA PROTEIN DIPSTICK (test NEGATIVE MG/DL NEGATIVE code = PROU) UA UROBILINIOGEN DIPSTICK NORMAL MG/DL NORMAL (test code = URO) UA NITRITE DIPSTICK (test NEGATIVE NEGATIVE code = TRACIE) UA LEUKOCYTE ESTERASE 100 /mm3 NEGATIVE A DIPSTICK (test code = LEUU) UA CULTURE NEEDED? (test YES,WBC>10 & EPI<25 Culture Chk code = UACULT) Criteria SOURCE OF URINE: CLEAN CATCHUA [id number] 00:34:00 Test Item Value Reference Range Interpretation Comments UA RBC (test code = RBCU) 10-20 RBC/HPF 0-3 A UA WBC (test code = XWBCU) 10-20 WBC/HPF 0-5 A UA EPITHELIAL CELLS (test code FEW EPI/HPF FEW = EPIU) UA BACTERIA (test code = XBACU) FEW NONE SOURCE OF URINE: CLEAN CATCHURINALYSIS [id number] 00:22:00 Test Item Value Reference Range Interpretation Comments UA COLOR (test code = COLU) YELLOW YELLOW UA APPEARANCE (test code = CLEAR APPU) UA GLUCOSE DIPSTICK (test code NORMAL MG/DL NORMAL = DGLUU) UA BILIRUBIN DIPSTICK (test NEGATIVE MG/DL NEGATIVE code = BILU) UA KETONE DIPSTICK (test code NEGATIVE MG/DL NEGATIVE = KETU) UA SPECIFIC GRAVITY (test code 1.010 1.003-1.030 N = SGU) UA BLOOD DIPSTICK (test code = 150 Florian/mm3 NEGATIVE A HUYEN) UA PH DIPSTICK (test code = 8.0 5.0-9.0 N FANTASMA) UA PROTEIN DIPSTICK (test code NEGATIVE MG/DL NEGATIVE = PROU) UA UROBILINIOGEN DIPSTICK NORMAL MG/DL NORMAL (test code = URO) UA NITRITE DIPSTICK (test code NEGATIVE NEGATIVE = TRACIE) UA LEUKOCYTE ESTERASE DIPSTICK 100 /mm3 NEGATIVE A (test code = LEUU) UA CULTURE NEEDED? (test code Criteria Culture Chk = UACULT) SOURCE OF URINE: CLEAN CATCHUA [id number] 00:22:00 Test Item Value Reference Range Interpretation Comments UA RBC (test code = RBCU) RBC/HPF 0-3 UA WBC (test code = XWBCU) WBC/HPF 0-5 UA EPITHELIAL CELLS (test code = EPI/HPF FEW EPIU) UA BACTERIA (test code = XBACU) NONE SOURCE OF URINE: CLEAN CATCHURINALYSIS [id number] 00:22:00 Test Item Value Reference Range Interpretation Comments UA COLOR (test code = COLU) YELLOW YELLOW UA APPEARANCE (test code = CLEAR APPU) UA GLUCOSE DIPSTICK (test code NORMAL MG/DL NORMAL = DGLUU) UA BILIRUBIN DIPSTICK (test NEGATIVE MG/DL NEGATIVE code = BILU) UA KETONE DIPSTICK (test code NEGATIVE MG/DL NEGATIVE = KETU) UA SPECIFIC GRAVITY (test code 1.010 1.003-1.030 N = SGU) UA BLOOD DIPSTICK (test code = 150 Florian/mm3 NEGATIVE A HUYEN) UA PH DIPSTICK (test code = 8.0 5.0-9.0 N FANTASMA) UA PROTEIN DIPSTICK (test code NEGATIVE MG/DL NEGATIVE = PROU) UA UROBILINIOGEN DIPSTICK NORMAL MG/DL NORMAL (test code = URO) UA NITRITE DIPSTICK (test code NEGATIVE NEGATIVE = TRACIE) UA LEUKOCYTE ESTERASE DIPSTICK 100 /mm3 NEGATIVE A (test code = LEUU) UA CULTURE NEEDED? (test code Criteria Culture Chk = UACULT) SOURCE OF URINE: CLEAN CATCHUA [id number] 00:22:00 Test Item Value Reference Range Interpretation Comments UA RBC (test code = RBCU) RBC/HPF 0-3 UA WBC (test code = XWBCU) WBC/HPF 0-5 UA EPITHELIAL CELLS (test code = EPI/HPF FEW EPIU) UA BACTERIA (test code = XBACU) NONE SOURCE OF URINE: CLEAN CATCHLACTIC [id number] 23:38:00 Test Item Value Reference Range Interpretation Comments LACTIC ACID (test code = LACT) 0.9 MMOL/L 0.7-2.1 N LACTIC [id number] 19:40:00 Test Item Value Reference Range Interpretation Comments LACTIC ACID (test code = LACT) 1.3 MMOL/L 0.7-2.1 N DRUGS OF [id number] 11:13:00 Test Item Value Reference Range Interpretation Comments DRUG SCRN (test code URINE DRUG SCREEN = HDOA) This is an unconfirmed screening result and should not be used for non-medical purposes CANNABINOD (test code POSITIVE NEGATIVE A = 88C) AMPHETAMINE (test Negative NEGATIVE code = 84A) BENZODIAZP (test code Negative NEGATIVE = 86A) BARBITURAT (test code Negative NEGATIVE = 85A) OPIATES (test code = Negative NEGATIVE 92B) COCAINE (test code = POSITIVE NEGATIVE A 87A) PHENCYCLID (test code Negative NEGATIVE = 66A) METHADONE (test code Negative NEGATIVE = 64A) DOAH (test code = DOAH.) *URINE DRUG SCREEN Cut-off values are as follows: Cannabinoids 50 ng/mL Cocaine 300 ng/mL Amphetamines 1000 ng/mL Phencyclidine 25 ng/mL Benzodiazepines 200 ng.mL Methadone 300 ng/mL Barbiturates 200 ng/mL Opiates 2000 ng/mL URINALYSIS WITH [id number] 11:09:00 Test Item Value Reference Range Interpretation Comments COLOR (test code = COLU) YELLOW YELLOW CLARITY (test code = CLA) CLOUDY CLEAR A GLUCOSE UR (test code = UA NEGATIVE NEGATIVE GLUCOSE) BILI UR (test code = BILE) NEGATIVE NEGATIVE KETONES UR (test code = [place]) 2+ NEGATIVE A SP GRAVITY (test code = SPGR) 1.018 1.005-1.030 PH UR (test code = PH) 6.5 4.5-8.0 PROTEIN UR (test code = PU) 1+ NEGATIVE A UROBIL UR (test code = UROQ) 1.0 EU/dL 0.2-1.0 NITRITE UR (test code = POSITIVE NEGATIVE A NITRITE) BLOOD UR (test code = UA BLOOD) 2+ NEGATIVE A LEUK ES UR (test code = LEUK) 3+ NEGATIVE A WBC UR (test code = UWBC) 20 /HPF 0-5 H RBC UR (test code = URBC) 4 /HPF 0-2 H EPITH UR (test code = UEPC) MODERATE /LPF FEW A BACTERIA UR (test code = UBACT) MANY /HPF NONE A CAST UR (test code = CAST) /LPF NONE CRYSTAL UR (test code = CRYU) / LPF NONE MUCUS UR (test code = MUC) FEW / HPF NONE A AMORPH UR (test code = JENNY) / HPF NONE TRICH UR (test code = UTRICH) /HPF NONE YEAST UR (test code = UY) /HPF NONE SPERM UR (test code = USPERM) /HPF NONE LACTIC [id number] 10:40:00 Test Item Value Reference Range Interpretation Comments LACTIC ACD (test code = LA) 0.8 mmol/L 0.4-2.0 CT STONE PROTOCOL [id number] 10:39:01CT abdomen and pelvis without contrast 11/17/19LOCATION: [id number] INDICATION: Right flank painTECHNIQUE: Helical CT axial imaging of the abdomen and pelvis was performed.Coronal and sagittal reformatted images were obtained. One or more of thefollowing dose reduction techniques were used: Automated exposure control,adjustment of the mA and/or kV according to patient size, and/or utilization ofiterative reconstruction technique.COMPARISON: 04/14/19 FINDINGS:Lower thorax: Bibasilar atelectasis.Hepatobiliary: Unremarkable.Gallbladder: Surgically absent.Spleen: Unremarkable.Pancreas: Unremarkable.Kidneys: Potential punctate calculus at the right ureterovesicular junction. Nohydronephrosis or hydroureter. Right nephromegaly with perinephric fatstranding. Additional subcentimeter nonobstructing calculi in the right kidney.Adrenals: Unremarkable.Lymph nodes: Unremarkable.Vessels: Unremarkable.Peritoneum/retroperitoneum: Unremarkable.Pelvic organs/bladder: Unremarkable.Bowel: No focal wall thickening or evidence for obstruction.Bones/soft tissues: Unremarkable. IMPRESSION: Potential right ureterovesicular junction calculus with resultant inflammatorychanges in the left kidney. Alternatively, findings may reflect pyelonephritis.BASIC METABOLIC [id number] 10:24:00 Test Item Value Reference Range Interpretation Comments GLUCOSE (test code = 06D) 100 mg/dL 75-100 SODIUM (test code = 01A) 140 mmol/L 136-145 POTASSIUM (test code = 01B) 3.1 mmol/L 3.6-5.1 L CHLORIDE (test code = 04A) 107 mmol/L 98-107 CO2 (test code = 02A) 20 mmol/L 22-32 L ANION GAP (test code = ANG) 16.1 mmol/L BUN (test code = 05D) 9 mg/dL 7-18 CREATININE (test code = 03E) 0.7 mg/dL 0.4-1.1 BUN/CREA (test code = BCR) 12 12-20 CALCIUM (test code = 09D) 8.2 mg/dL 8.3-9.5 L CBC WITH MANUAL [id number] 10:18:00 Test Item Value Reference Range Interpretation Comments WBC (test code = WBC) 25.3 10\S\3/uL 4.5-11.0 HH RBC (test code = RBC) 4.30 10\S\6/uL 4.30-5.70 HGB (test code = HBG) 10.5 g/dL 12.0-15.5 L HCT (test code = HCT) 33.6 % 35.0-44.0 L MCV (test code = MCV) 78.1 fL 81.0-99.0 L MCH (test code = MCH) 24.4 pg 27.0-31.0 L MCHC (test code = MCHC) 31.3 g/dL 32.0-36.0 L RDW (test code = RDW) 16.2 % 11.5-14.5 H PLT (test code = PLT) 334 10\S\3/uL 130-400 MPV (test code = MPV) 9.7 fL 9.4-12.4 NEUTROP # (test code = 20.7 10\S\3/uL 1.6-8.0 H NE#) LYMPH # (test code = 2.0 10\S\3/uL 1.1-3.5 LY#) MONOCYTE # (test code = 2.4 10\S\3/uL 0.0-1.1 H MO#) EOSINOPH # (test code = 0.0 10\S\3/uL 0.0-0.7 EO#) BASOPHIL # (test code = 0.1 10\S\3/uL 0.0-0.3 BA#) IG # (test code = IG#) 0.13 10\S\3/uL 0.00-0.06 H NRBC # (test code = 0.00 10\S\3/uL 0.00-0.01 NRBC#) NEUTROPH % (test code = 82.0 % 35.0-73.0 H NE%) LYMPH % (test code = 7.8 % 20.0-55.0 L LY%) MONO % (test code = MO%) 9.3 % 2.5-10.0 EOSINOPH % (test code = 0.0 % 0.0-5.0 EO%) BASOPHIL % (test code = 0.4 % 0.0-2.0 BA%) IG % (test code = IG%) 0.5 % 0.0-0.8 NRBC% (test code = 0.0 % 0.0-0.2 NRBC%) MAN DIFF (test code = MANUAL HMDIFF) DIFFERENTIAL SEG (test code = SEG) 75 % 42-75 BAND (test code = BAND) 1 % 0-8 LYMPH (test code = 18 % 20-51 L LYMPH) MONO (test code = MONO) 5 % 3-11 EOS (test code = EOS) 0 % 0-10 BASO (test code = BASO) 1 % 0-2 RBC MORPH (test code = ABNORMAL NORMAL A RBCMORN) PLT EST (test code = ADEQUATE ADEQUATE PLTEST) PLT MORPH (test code = NORMAL (1.5-3 um) NORMAL PLTMOR) ANISO (test code = 1+ NONE A ANISO) HYPOCHROM (test code = 1+ NONE A HYPOC) MICROCYTIC (test code = 1+ NONE A MICRO) VACUOLES (test code = PRESENT NONE A VAC) SCHISTO (test code = 1+ NONE A MAXX) LIVER [id number] 10:15:00 Test Item Value Reference Range Interpretation Comments BILI TOTAL (test code = 11A) 0.7 mg/dL 0.2-1.0 BILI DIRCT (test code = 12A) 0.2 mg/dL 0.0-0.2 BILI INDIR (test code = BILII) 0.5 mg/dL <=0.8 PROTEIN (test code = 07D) 7.5 g/dL 6.4-8.2 ALBUMIN (test code = 08D) 3.1 g/dL 3.5-4.8 L GLOBULIN (test code = GLB) 4.4 g/dL 1.5-3.8 H ALB/GLOB (test code = AGRR) 0.7 1.0-2.6 L ALK PHOS (test code = 35A) 59 IU/L 42-121 AST (test code = 30A) 13 IU/L <=42 ALT (test code = 31A) 11 IU/L <=78 CARDIAC [id number] 10:14:00 Test Item Value Reference Range Interpretation Comments TROPONIN I (test code = A84) <0.015 ng/mL 0.000-0.045 PRO TIME AND [id number] 10:13:00 Test Item Value Reference Range Interpretation Comments PT (test code = 20.2 s 9.8-13.6 H TT) INR (test code = 1.7 INR) INRH (test code = SUGGESTED INRH) THERAPEUTIC RANGE FOR INR: 2.5 - 3.5 For Patients with Prosthetic Valves or Patients with recurrent Thromboembolic Events 2.0 - 3.0 For Most Other Applications PTT (test code = 69.6 s 20.2-38.0 H PTT) PTTH (test code = To monitor the PTTH) effectiveness of heparin, we offer the Anti-Xa (Heparin Assay). It can be used for either unfractionated or LMW Heparin. Order Code is ANTI-XA AMYLASE AND [id number] 10:09:00 Test Item Value Reference Range Interpretation Comments AMYLASE (test code = 10A) 57 U/L 28-100 LIPASE (test code = 60A) 54 IU/L 73-393 L SERUM [id number] 10:00:00 Test Item Value Reference Range Interpretation Comments PREG SRM (test code = PGS) NEGATIVE NEGATIVE XR CHEST 1 VIEW [id number] 10:02:15Portable AP chest, 1 viewLocation Code: [id number] HISTORY: Chest painCOMPARISON: NoneCOMMENT: The lungs are clear and well inflated. The costophrenic angles are sharp. Thecardiomediastinal silhouette is unremarkable. The bones are intact.IMPRESSION: No acute abnormalityBRAIN NATRIURETIC [id number] 09:54:00 Test Item Value Reference Range Interpretation Comments proBNP (test code = PBNP) 46 pg/mL 0-125 TROPONIN [id number] 09:52:00 Test Item Value Reference Range Interpretation Comments TROPONIN I (test code = A84) <0.015 ng/mL 0.000-0.045 PRO TIME AND [id number] 09:52:00 Test Item Value Reference Range Interpretation Comments PT (test code = 12.5 s 9.8-13.6 TT) INR (test code = 1.1 INR) INRH (test code = SUGGESTED INRH) THERAPEUTIC RANGE FOR INR: 2.5 - 3.5 For Patients with Prosthetic Valves or Patients with recurrent Thromboembolic Events 2.0 - 3.0 For Most Other Applications PTT (test code = 61.0 s 20.2-38.0 H PTT) PTTH (test code = To monitor the PTTH) effectiveness of heparin, we offer the Anti-Xa (Heparin Assay). It can be used for either unfractionated or LMW Heparin. Order Code is ANTI-XA COMPREHENSIVE METABOLIC [id number] 09:51:00 Test Item Value Reference Range Interpretation Comments GLUCOSE (test code = 06D) 96 mg/dL 75-100 SODIUM (test code = 01A) 139 mmol/L 136-145 POTASSIUM (test code = 01B) 3.7 mmol/L 3.6-5.1 CHLORIDE (test code = 04A) 109 mmol/L 98-107 H CO2 (test code = 02A) 27 mmol/L 22-32 ANION GAP (test code = ANG) 6.7 mmol/L BUN (test code = 05D) 10 mg/dL 7-18 CREATININE (test code = 03E) 0.7 mg/dL 0.4-1.1 BUN/CREA (test code = BCR) 14 12-20 CALCIUM (test code = 09D) 8.8 mg/dL 8.3-9.5 BILI TOTAL (test code = 11A) 0.2 mg/dL 0.2-1.0 PROTEIN (test code = 07D) 8.0 g/dL 6.4-8.2 ALBUMIN (test code = 08D) 3.7 g/dL 3.5-4.8 GLOBULIN (test code = GLB) 4.3 g/dL 1.5-3.8 H ALB/GLOB (test code = AGRR) 0.9 1.0-2.6 L ALK PHOS (test code = 35A) 50 IU/L 42-121 AST (test code = 30A) 15 IU/L <=42 ALT (test code = 31A) 15 IU/L <=78 SERUM [id number] 09:44:00 Test Item Value Reference Range Interpretation Comments PREG SRM (test code = PGS) NEGATIVE NEGATIVE CBC (INCLUDES AUTOMATED DIFFERENTIAL)2019-11-11 09:36:00 Test Item Value Reference Range Interpretation Comments WBC (test code = WBC) 6.3 10\S\3/uL 4.5-11.0 RBC (test code = RBC) 4.81 10\S\6/uL 4.30-5.70 HGB (test code = HBG) 11.4 g/dL 12.0-15.5 L HCT (test code = HCT) 37.3 % 35.0-44.0 MCV (test code = MCV) 77.5 fL 81.0-99.0 L MCH (test code = MCH) 23.7 pg 27.0-31.0 L MCHC (test code = MCHC) 30.6 g/dL 32.0-36.0 L RDW (test code = RDW) 16.1 % 11.5-14.5 H PLT (test code = PLT) 493 10\S\3/uL 130-400 H MPV (test code = MPV) 10.1 fL 9.4-12.4 NEUTROP # (test code = NE#) 3.2 10\S\3/uL 1.6-8.0 LYMPH # (test code = LY#) 2.3 10\S\3/uL 1.1-3.5 MONOCYTE # (test code = MO#) 0.6 10\S\3/uL 0.0-1.1 EOSINOPH # (test code = EO#) 0.2 10\S\3/uL 0.0-0.7 BASOPHIL # (test code = BA#) 0.1 10\S\3/uL 0.0-0.3 IG # (test code = IG#) 0.01 10\S\3/uL 0.00-0.06 NRBC # (test code = NRBC#) 0.00 10\S\3/uL 0.00-0.01 NEUTROPH % (test code = NE%) 50.6 % 35.0-73.0 LYMPH % (test code = LY%) 35.8 % 20.0-55.0 MONO % (test code = MO%) 8.9 % 2.5-10.0 EOSINOPH % (test code = EO%) 3.5 % 0.0-5.0 BASOPHIL % (test code = BA%) 1.0 % 0.0-2.0 IG % (test code = IG%) 0.2 % 0.0-0.8 NRBC% (test code = NRBC%) 0.0 % 0.0-0.2 MANDIFF (test code = MDIFF) NO NO RBC MORPH (test code = RBCMOR) NORMAL WOUND/SKIN/ABS.&GRAMSTAIN [id number] 09:41:00 Test Item Value Reference Range Interpretation Comments Direct Exam (test code = FEW WHITE BLOOD CELLS DE1) SEEN Direct Exam (test code = MODERATE GRAM DE2) POSITIVE COCCI Isolate 1 (test code = METHICILLIN RESISTANT AA ISO1) STAPH AUREUS oxacillin mirian (test code ug/mL R = ox) gentamicin (test code = ug/mL S gm) ciprofloxacin (test code ug/mL R = cip) levofloxacin (test code ug/mL I = lev) erythromycin (test code ug/mL R = e) clindamycin (test code = ug/mL R cc) linezolid (test code = ug/mL S lnz) daptomycin (test code = ug/mL S dap) vancomycin (test code = ug/mL S va) doxycycline (test code = ug/mL S dx) tetracycline (test code ug/mL S = tet) rifampicin (test code = ug/mL S rif) trimethoprim/sulfamethox ug/mL S azole (test code = sxt) Isolate 1 (test code = METHICILLIN RESISTANT AA ISO11) STAPH AUREUS oxacillin mirian (test code ug/mL R = ox) gentamicin (test code = ug/mL S gm) ciprofloxacin (test code ug/mL R = cip) levofloxacin (test code ug/mL I = lev) erythromycin (test code ug/mL R = e) clindamycin (test code = ug/mL R cc) linezolid (test code = ug/mL S lnz) daptomycin (test code = ug/mL S dap) vancomycin (test code = ug/mL S va) doxycycline (test code = ug/mL S dx) tetracycline (test code ug/mL S = tet) rifampicin (test code = ug/mL S rif) trimethoprim/sulfamethox ug/mL S azole (test code = sxt) COMPREHENSIVE METABOLIC [id number] 08:49:00 Test Item Value Reference Range Interpretation Comments GLUCOSE (test code = 06D) 94 mg/dL 75-100 SODIUM (test code = 01A) 140 mmol/L 136-145 POTASSIUM (test code = 01B) 4.0 mmol/L 3.6-5.1 CHLORIDE (test code = 04A) 108 mmol/L 98-107 H CO2 (test code = 02A) 28 mmol/L 22-32 ANION GAP (test code = ANG) 8.0 mmol/L BUN (test code = 05D) 9 mg/dL 7-18 CREATININE (test code = 03E) 0.6 mg/dL 0.4-1.1 BUN/CREA (test code = BCR) 15 12-20 CALCIUM (test code = 09D) 8.4 mg/dL 8.3-9.5 BILI TOTAL (test code = 11A) 0.2 mg/dL 0.2-1.0 PROTEIN (test code = 07D) 7.4 g/dL 6.4-8.2 ALBUMIN (test code = 08D) 3.5 g/dL 3.5-4.8 GLOBULIN (test code = GLB) 3.9 g/dL 1.5-3.8 H ALB/GLOB (test code = AGRR) 0.9 1.0-2.6 L ALK PHOS (test code = 35A) 44 IU/L 42-121 AST (test code = 30A) 25 IU/L <=42 ALT (test code = 31A) 21 IU/L <=78 CBC (INCLUDES AUTOMATED DIFFERENTIAL)2019-08-26 08:34:00 Test Item Value Reference Range Interpretation Comments WBC (test code = WBC) 9.5 10\S\3/uL 4.5-11.0 RBC (test code = RBC) 4.27 10\S\6/uL 4.30-5.70 L HGB (test code = HBG) 10.3 g/dL 12.0-15.5 L HCT (test code = HCT) 33.0 % 35.0-44.0 L MCV (test code = MCV) 77.3 fL 81.0-99.0 L MCH (test code = MCH) 24.1 pg 27.0-31.0 L MCHC (test code = MCHC) 31.2 g/dL 32.0-36.0 L RDW (test code = RDW) 16.6 % 11.5-14.5 H PLT (test code = PLT) 442 10\S\3/uL 130-400 H MPV (test code = MPV) 9.0 fL 9.4-12.4 L NEUTROP # (test code = NE#) 5.8 10\S\3/uL 1.6-8.0 LYMPH # (test code = LY#) 2.3 10\S\3/uL 1.1-3.5 MONOCYTE # (test code = MO#) 0.9 10\S\3/uL 0.0-1.1 EOSINOPH # (test code = EO#) 0.4 10\S\3/uL 0.0-0.7 BASOPHIL # (test code = BA#) 0.1 10\S\3/uL 0.0-0.3 IG # (test code = IG#) 0.01 10\S\3/uL 0.00-0.06 NRBC # (test code = NRBC#) 0.00 10\S\3/uL 0.00-0.01 NEUTROPH % (test code = NE%) 61.6 % 35.0-73.0 LYMPH % (test code = LY%) 24.4 % 20.0-55.0 MONO % (test code = MO%) 9.1 % 2.5-10.0 EOSINOPH % (test code = EO%) 4.2 % 0.0-5.0 BASOPHIL % (test code = BA%) 0.6 % 0.0-2.0 IG % (test code = IG%) 0.1 % 0.0-0.8 NRBC% (test code = NRBC%) 0.0 % 0.0-0.2 MANDIFF (test code = MDIFF) NO NO RBC MORPH (test code = RBCMOR) NORMAL U/S NON [id number] 11:10:20CLINICAL HISTORY: Left lower quadrant pain.LOCATION: D4.FINDINGS: Comparison is made with CT abdomen/pelvis performed today. .Real-time potts scale sonographic evaluation is performed of the pelvis usingtransabdominal and transvaginal technique. The uterus measures 8.5 cm sagittalx 5.0 cm AP x 4.1 cm transverse. There is a 1.0 cm intramural fibroid withinthe posterior uterus. Uterine echotexture is otherwise within normal limits.The endometrium is normal in appearance and measures 8 mm in width. There is a3.4 cm relatively homogeneous hypoechoic lesion within the left ovary withoutinternal color Doppler flow. There is suggestion of internal fluid level. Thereis also a 2.0 cm complex cystic lesion within the left ovary without internalcolor Doppler flow. The right ovary is normal in appearance. There is normalarterial Doppler flow within both ovaries. The right ovary measures 2.2 cm x2.4 cm x 1.7cm and the left ovary measures 4.7 cm x 4.4 cm x 4.1 cm. No freefluid noted.IMPRESSION: 1. There maria d 3.4 cm relatively homogeneous hypoechoic lesion within the leftovary without internal color Doppler flow. There is suggestion of fluid level.This could represent hemorrhagic cyst or endometrioma. 2.0cm complex cysticlesion within the left ovary without internal color Doppler flow is suggestiveof hemorrhagic cyst. Follow-up pelvic ultrasound in 3 months is recommended todemonstrate resolution or stability of these findings.2. There is a 1.0 cm intramural fibroid within the posterior uterus. URINALYSIS WITH [id number] 10:46:00 Test Item Value Reference Range Interpretation Comments COLOR (test code = COLU) YELLOW YELLOW CLARITY (test code = CLA) CLEAR CLEAR GLUCOSE UR (test code = UA GLUCOSE) NEGATIVE NEGATIVE BILI UR (test code = BILE) NEGATIVE NEGATIVE KETONES UR (test code = CARRINGTON) NEGATIVE NEGATIVE SP GRAVITY (test code = SPGR) 1.013 1.005-1.030 PH UR (test code = PH) 7.0 4.5-8.0 PROTEIN UR (test code = PU) NEGATIVE NEGATIVE UROBIL UR (test code = UROQ) 0.2 EU/dL 0.2-1.0 NITRITE UR (test code = NITRITE) NEGATIVE NEGATIVE BLOOD UR (test code = UA BLOOD) 3+ NEGATIVE A LEUK ES UR (test code = LEUK) TRACE NEGATIVE A WBC UR (test code = UWBC) 2 /HPF 0-5 RBC UR (test code = URBC) 7 /HPF 0-2 H EPITH UR (test code = UEPC) FEW /LPF FEW BACTERIA UR (test code = UBACT) NONE /HPF NONE CAST UR (test code = CAST) /LPF NONE CRYSTAL UR (test code = CRYU) / LPF NONE MUCUS UR (test code = MUC) / HPF NONE AMORPH UR (test code = JENNY) / HPF NONE TRICH UR (test code = UTRICH) /HPF NONE YEAST UR (test code = UY) /HPF NONE SPERM UR (test code = USPERM) /HPF NONE CT ABDOMEN AND PELVIS WITH [id number] 09:48:42CT abdomen and pelvis with contrastLocation Code: [id number] HISTORY: [id number]: Left lower quadrant painCOMPARISON: 12/31/17Technique: Helical CT of the abdomen and pelvis was performed followingintravenous contrast. Thin section axial, sagittal and coronal images wereobtained. One or more of the following dose reduction techniques were used:Automated exposure control, adjustment of the mA and or KV according to patientsize, and/or utilization of iterative reconstruction technique. DLP: 874mGy-cm.FINDINGS:The lung bases are clear. The liver, gallbladder, adrenal glands, kidneys, pancreas, and spleen areunremarkable.The unopacified loops of bowel demonstrate no focal thickening or dilatation.Note t hat an appendix. Moderate stool in the colon. There is no free peritonealair or fluid. The abdominalaorta is normal in caliber and contour. There is noretroperitoneal mass or fluid collection. The urinary bladder is unremarkable.There is no pelvic mass or fluid collection. 4.1 x 2.9 cm left ovariancystnoted with free fluid in the cul-de-sac. Small fundal fibroids again seen.The bones, skin, and surrounding soft tissues are unremarkable.IMPRESSION: 4.1 cm left ovarian cyst with mild free fluid inthe cul-de-sac. Small fundalfibroids noted.COMPREHENSIVE METABOLIC [id number] 09:20:00 Test Item Value Reference Range Interpretation Comments GLUCOSE (test code = 06D) 91 mg/dL 75-100 SODIUM (test code = 01A) 142 mmol/L 136-145 POTASSIUM (test code = 01B) 3.8 mmol/L 3.6-5.1 CHLORIDE (test code = 04A) 111 mmol/L 98-107 H CO2 (test code = 02A) 25 mmol/L 22-32 ANION GAP (test code = ANG) 9.8 mmol/L BUN (test code = 05D) 7 mg/dL 7-18 CREATININE (test code = 03E) 0.5 mg/dL 0.4-1.1 BUN/CREA (test code = BCR) 13 12-20 CALCIUM (test code = 09D) 8.0 mg/dL 8.3-9.5 L BILI TOTAL (test code = 11A) 0.2 mg/dL 0.2-1.0 PROTEIN (test code = 07D) 6.9 g/dL 6.4-8.2 ALBUMIN (test code = 08D) 3.0 g/dL 3.5-4.8 L GLOBULIN (test code = GLB) 3.9 g/dL 1.5-3.8 H ALB/GLOB (test code = AGRR) 0.8 1.0-2.6 L ALK PHOS (test code = 35A) 47 IU/L 42-121 AST (test code = 30A) 15 IU/L <=42 ALT (test code = 31A) 15 IU/L <=78 AMYLASE AND [id number] 09:16:00 Test Item Value Reference Range Interpretation Comments AMYLASE (test code = 10A) 82 U/L 28-100 LIPASE (test code = 60A) 123 IU/L 73-393 SERUM [id number] 09:12:00 Test Item Value Reference Range Interpretation Comments PREG SRM (test code = PGS) NEGATIVE NEGATIVE CBC (INCLUDES AUTOMATED DIFFERENTIAL)2019-04-14 09:04:00 Test Item Value Reference Range Interpretation Comments WBC (test code = WBC) 9.7 10\S\3/uL 4.5-11.0 RBC (test code = RBC) 4.17 10\S\6/uL 4.30-5.70 L HGB (test code = HBG) 9.9 g/dL 12.0-15.5 L HCT (test code = HCT) 32.0 % 35.0-44.0 L MCV (test code = MCV) 76.7 fL 81.0-99.0 L MCH (test code = MCH) 23.7 pg 27.0-31.0 L MCHC (test code = MCHC) 30.9 g/dL 32.0-36.0 L RDW (test code = RDW) 17.5 % 11.5-14.5 H PLT (test code = PLT) 376 10\S\3/uL 130-400 MPV (test code = MPV) 9.7 fL 9.4-12.4 NEUTROP # (test code = NE#) 6.4 10\S\3/uL 1.6-8.0 LYMPH # (test code = LY#) 2.4 10\S\3/uL 1.1-3.5 MONOCYTE # (test code = MO#) 0.7 10\S\3/uL 0.0-1.1 EOSINOPH # (test code = EO#) 0.2 10\S\3/uL 0.0-0.7 BASOPHIL # (test code = BA#) 0.0 10\S\3/uL 0.0-0.3 IG # (test code = IG#) 0.03 10\S\3/uL 0.00-0.06 NRBC # (test code = NRBC#) 0.00 10\S\3/uL 0.00-0.01 NEUTROPH % (test code = NE%) 65.5 % 35.0-73.0 LYMPH % (test code = LY%) 24.5 % 20.0-55.0 MONO % (test code = MO%) 7.2 % 2.5-10.0 EOSINOPH % (test code = EO%) 2.1 % 0.0-5.0 BASOPHIL % (test code = BA%) 0.4 % 0.0-2.0 IG % (test code = IG%) 0.3 % 0.0-0.8 NRBC% (test code = NRBC%) 0.0 % 0.0-0.2 MANDIFF (test code = MDIFF) NO NO RBC MORPH (test code = RBCMOR) NORMAL CT FACIAL [id number] 23:39:40EXAM: CT FACIAL BONES WITH CONTRASTINDICATION: Facial swelling. Evaluate for dental abscess.COMPARISON: None availableTECHNIQUE: Axial CT imaging of the facial bones after the administration ofintravenous contrast. Coronal and sagittal reconstructions were submitted. IV contrast: 100 cc of Omnipaque 300DLP: 579 mGy-cmDISCUSSION: There is subcutaneous edema noted overlying the bilateral maxilla, worseon theright with no fluid collection identified. This most likely representscellulitis. There is a periapical lucency noted at the right precentralmaxillary incisor. There are multiple dental caries involving numerous teeth.The mandible is intact and the temporomandibular joints are well-aligned. The paranasal sinuses and mastoid air cells are clear.The orbits and globes are normal. There is no intrac onal hematoma. IMPRESSION: 1. Cellulitis of the soft tissues overlying the bilateral maxilla. No abscessis identified.2. Periapical lucency noted at the right precentral maxillary incisor.3. Multiple dental caries noted within both maxillary and mandibular teeth.LOCATION: B2This CT exam was performed according to our departmental dose optimizationprogram, which includes automated exposure control,adjustment of the mA and kVaccording to patient size and/or use of iterative reconstructive technique.COMPREHENSIVE METABOLIC [id number] 22:00:00 Test Item Value Reference Range Interpretation Comments GLUCOSE (test code = 06D) 91 mg/dL 75-100 SODIUM (test code = 01A) 137 mmol/L 136-145 POTASSIUM (test code = 01B) 3.5 mmol/L 3.6-5.1 L CHLORIDE (test code = 04A) 102 mmol/L 98-107 CO2 (test code = 02A) 28 mmol/L 22-32 ANION GAP (test code = ANG) 10.5 mmol/L BUN (test code = 05D) 5 mg/dL 7-18 L CREATININE (test code = 03E) 0.8 mg/dL 0.4-1.1 BUN/CREA (test code = BCR) 6 12-20 L CALCIUM (test code = 09D) 8.9 mg/dL 8.3-9.5 BILI TOTAL (test code = 11A) 0.5 mg/dL 0.2-1.0 PROTEIN (test code = 07D) 8.5 g/dL 6.4-8.2 H ALBUMIN (test code = 08D) 3.7 g/dL 3.5-4.8 GLOBULIN (test code = GLB) 4.8 g/dL 1.5-3.8 H ALB/GLOB (test code = AGRR) 0.8 1.0-2.6 L ALK PHOS (test code = 35A) 54 IU/L 42-121 AST (test code = 30A) 15 IU/L <=42 ALT (test code = 31A) 22 IU/L <=78 SERUM [id number] 21:53:00 Test Item Value Reference Range Interpretation Comments PREG SRM (test code = PGS) NEGATIVE NEGATIVE CBC (INCLUDES AUTOMATED DIFFERENTIAL)2018-07-23 21:50:00 Test Item Value Reference Range Interpretation Comments WBC (test code = WBC) 17.7 10\S\3/uL 4.5-11.0 H RBC (test code = RBC) 4.75 10\S\6/uL 4.30-5.70 HGB (test code = HBG) 11.3 g/dL 12.0-15.5 L HCT (test code = HCT) 35.1 % 35.0-44.0 MCV (test code = MCV) 73.9 fL 81.0-99.0 L MCH (test code = MCH) 23.8 pg 27.0-31.0 L MCHC (test code = MCHC) 32.2 g/dL 32.0-36.0 RDW (test code = RDW) 17.7 % 11.5-14.5 H PLT (test code = PLT) 470 10\S\3/uL 130-400 H MPV (test code = MPV) 9.2 fL 9.4-12.4 L NEUTROP # (test code = NE#) 12.8 10\S\3/uL 1.6-8.0 H LYMPH # (test code = LY#) 2.9 10\S\3/uL 1.1-3.5 MONOCYTE # (test code = MO#) 1.8 10\S\3/uL 0.0-1.1 H EOSINOPH # (test code = EO#) 0.0 10\S\3/uL 0.0-0.7 BASOPHIL # (test code = BA#) 0.1 10\S\3/uL 0.0-0.3 IG # (test code = IG#) 0.08 10\S\3/uL 0.00-0.06 H NRBC # (test code = NRBC#) 0.00 10\S\3/uL 0.00-0.01 NEUTROPH % (test code = NE%) 72.3 % 35.0-73.0 LYMPH % (test code = LY%) 16.5 % 20.0-55.0 L MONO % (test code = MO%) 10.2 % 2.5-10.0 H EOSINOPH % (test code = EO%) 0.2 % 0.0-5.0 BASOPHIL % (test code = BA%) 0.3 % 0.0-2.0 IG % (test code = IG%) 0.5 % 0.0-0.8 NRBC% (test code = NRBC%) 0.0 % 0.0-0.2 MANDIFF (test code = MDIFF) NO NO URINE [id number] 08:29:00 Test Item Value Reference Range Interpretation Comments Culture Observations THREE OR MORE SPECIES (test code = COB1) OF BACTERIA ISOLATED. PROBABLE CONTAMINATION. Culture Observations IDENTIFICATION AND (test code = COB17) SUSCEPTIBILITY NOT INDICATED. RECOLLECTION RECOMMENDED Isolate 1 (test code = Proteus mirabilis A ISO1) ampicillin (test code = ug/mL S am) ampicillin/sulbactam ug/mL S (test code = ams) piperacillin/tazobactam ug/mL S (test code = tzp) cefazolin (test code = ug/mL S cz) ceftazidime (test code ug/mL S = jaja) ceftriaxone1 (test code ug/mL S = ctr) cefepime (test code = ug/mL S fep) aztreonam (test code = ug/mL S azm) ertapenem (test code = ug/mL S etp) meropenem (test code = ug/mL S mem) gentamicin (test code = ug/mL S gm) tobramycin (test code = ug/mL S tob) levofloxacin (test code ug/mL S = lev) nitrofurantoin (test ug/mL R code = ftn) trimethoprim/sulfametho ug/mL S xazole (test code = sxt) URINALYSIS WITH [id number] 02:49:00 Test Item Value Reference Range Interpretation Comments COLOR (test code = COLU) YELLOW YELLOW CLARITY (test code = CLA) CLEAR CLEAR GLUCOSE UR (test code = UA NEGATIVE NEGATIVE GLUCOSE) BILI UR (test code = BILE) NEGATIVE NEGATIVE KETONES UR (test code = [place]) NEGATIVE NEGATIVE SP GRAVITY (test code = SPGR) 1.027 1.005-1.030 PH UR (test code = PH) 6.0 4.5-8.0 PROTEIN UR (test code = PU) NEGATIVE NEGATIVE UROBIL UR (test code = UROQ) 1.0 EU/dL 0.2-1.0 NITRITE UR (test code = NEGATIVE NEGATIVE NITRITE) BLOOD UR (test code = UA BLOOD) NEGATIVE NEGATIVE LEUK ES UR (test code = LEUK) 2+ NEGATIVE A WBC UR (test code = UWBC) 14 /HPF 0-5 H RBC UR (test code = URBC) 2 /HPF 0-2 EPITH UR (test code = UEPC) FEW /LPF FEW BACTERIA UR (test code = UBACT) MODERATE /HPF NONE A CAST UR (test code = CAST) /LPF NONE CRYSTAL UR (test code = CRYU) / LPF NONE MUCUS UR (test code = MUC) / HPF NONE AMORPH UR (test code = JENNY) / HPF NONE TRICH UR (test code = UTRICH) FEW /HPF NONE A YEAST UR (test code = UY) /HPF NONE SPERM UR (test code = USPERM) /HPF NONE DRUGS OF [id number] 02:42:00 Test Item Value Reference Range Interpretation Comments DRUG SCRN (test code URINE DRUG SCREEN = HDOA) This is an unconfirmed screening result and should not be used for non-medical purposes CANNABINOD (test code POSITIVE NEGATIVE A = 88C) AMPHETAMINE (test Negative NEGATIVE code = 84A) BENZODIAZP (test code Negative NEGATIVE = 86A) BARBITURAT (test code Negative NEGATIVE = 85A) OPIATES (test code = Negative NEGATIVE 92B) COCAINE (test code = POSITIVE NEGATIVE A 87A) PHENCYCLID (test code Negative NEGATIVE = 66A) METHADONE (test code Negative NEGATIVE = 64A) DOAH (test code = DOAH) *URINE DRUG SCREEN Cut-off values are as follows: Cannabinoids 50 ng/mL Cocaine 300 ng/mL Amphetamines 1000 ng/mL Phencyclidine 25 ng/mL Benzodiazepines 200 ng.mL Methadone 300 ng/mL Barbiturates 200 ng/mL Opiates 2000 ng/mL THYROID PANEL/SCREEN (TSH)2018-02-24 00:56:00 Test Item Value Reference Range Interpretation Comments TSH (test code = A57) 1.220 uIU/mL 0.358-3.740 ALCOHOL BLOOD (ETOH)2018-02-24 00:42:00 Test Item Value Reference Range Interpretation Comments ETOH (test code = HALC) ETHANOL The result is to be used only for medical purposes ALCOHOL (test code = <10 mg/dL <=10 56A) AMYLASE AND [id number] 00:41:00 Test Item Value Reference Range Interpretation Comments AMYLASE (test code = 10A) 80 U/L 28-100 LIPASE (test code = 60A) 173 IU/L 73-393 COMPREHENSIVE METABOLIC [id number] 00:41:00 Test Item Value Reference Range Interpretation Comments GLUCOSE (test code = 06D) 93 mg/dL 75-100 SODIUM (test code = 01A) 140 mmol/L 136-145 POTASSIUM (test code = 01B) 3.6 mmol/L 3.6-5.1 CHLORIDE (test code = 04A) 113 mmol/L 98-107 H CO2 (test code = 02A) 24 mmol/L 22-32 ANION GAP (test code = ANG) 6.6 mmol/L BUN (test code = 05D) 13 mg/dL 7-18 CREATININE (test code = 03E) 0.7 mg/dL 0.4-1.1 BUN/CREA (test code = BCR) 20 12-20 CALCIUM (test code = 09D) 8.1 mg/dL 8.3-9.5 L BILI TOTAL (test code = 11A) 0.3 mg/dL 0.2-1.0 PROTEIN (test code = 07D) 7.0 g/dL 6.4-8.2 ALBUMIN (test code = 08D) 3.4 g/dL 3.5-4.8 L GLOBULIN (test code = GLB) 3.6 g/dL 1.5-3.8 ALB/GLOB (test code = AGRR) 0.9 1.0-2.6 L ALK PHOS (test code = 35A) 46 IU/L 42-121 AST (test code = 30A) 15 IU/L <=42 ALT (test code = 31A) 10 IU/L <=78 SERUM [id number] 00:38:00 Test Item Value Reference Range Interpretation Comments PREG SRM (test code = PGS) NEGATIVE NEGATIVE CBC (INCLUDES AUTOMATED DIFFERENTIAL)2018-02-24 00:21:00 Test Item Value Reference Range Interpretation Comments WBC (test code = WBC) 10.4 10\S\3/uL 4.5-11.0 RBC (test code = RBC) 4.05 10\S\6/uL 4.30-5.70 L HGB (test code = HBG) 9.7 g/dL 12.0-15.5 L HCT (test code = HCT) 30.7 % 35.0-44.0 L MCV (test code = MCV) 75.8 fL 81.0-99.0 L MCH (test code = MCH) 24.0 pg 27.0-31.0 L MCHC (test code = MCHC) 31.6 g/dL 32.0-36.0 L RDW (test code = RDW) 16.9 % 11.5-14.5 H PLT (test code = PLT) 346 10\S\3/uL 130-400 MPV (test code = MPV) 9.9 fL 9.4-12.4 NEUTROP # (test code = NE#) 6.9 10\S\3/uL 1.6-8.0 LYMPH # (test code = LY#) 2.6 10\S\3/uL 1.1-3.5 MONOCYTE # (test code = MO#) 0.6 10\S\3/uL 0.0-1.1 EOSINOPH # (test code = EO#) 0.3 10\S\3/uL 0.0-0.7 BASOPHIL # (test code = BA#) 0.0 10\S\3/uL 0.0-0.3 IG # (test code = IG#) 0.02 10\S\3/uL 0.00-0.06 NRBC # (test code = NRBC#) 0.00 10\S\3/uL 0.00-0.01 NEUTROPH % (test code = NE%) 66.2 % 35.0-73.0 LYMPH % (test code = LY%) 24.7 % 20.0-55.0 MONO % (test code = MO%) 5.7 % 2.5-10.0 EOSINOPH % (test code = EO%) 2.8 % 0.0-5.0 BASOPHIL % (test code = BA%) 0.4 % 0.0-2.0 IG % (test code = IG%) 0.2 % 0.0-0.8 NRBC% (test code = NRBC%) 0.0 % 0.0-0.2 MANDIFF (test code = MDIFF) NO NO RBC MORPH (test code = RBCMOR) NORMAL DIRECT CHLAMYDIA [id number] 15:15:00 Test Item Value Reference Range Interpretation Comments CHLAMYDIA NOT DETECTED NOT DETECTED TRACHOMATIS (test code = 04000199) NEISSERIA NOT DETECTED NOT DETECTED GONORRHOEAE (test code = 23872755) Endnote (test code This test was = 83436539) performed using the APTIMA COMBO2 Assay([employer]The jarrod tical performance characteristics of thisassay, when used to test SurePat h specimens haveb een determined by [employer].MARÍA ELENA T PERFORMED AT:[facility] [address] [id number] DE LEON M.D. CT ABDOMEN AND PELVIS WITH [id number] 19:27:20CT ABDOMEN AND PELVIS WITH CONTRASTLOCATION: [id number]: [id number]: Lower abdominal pain. COMPARISON: NoneTECHNIQUE: Axial images of the abdomen and pelvis were obtained withintravenous, iodine-based contrast. Venous and delayed phase images wereobtained.DISCUSSION:Lower thorax: Mild bibasilar atelectasis.Hepatobiliary: There is mild focal fatty infiltration along the falciformligament. No biliary ductal dilatation.Gallbladder: RemovedSpleen: Unremarkable.Pancreas: Unremarkable.Adrenals: Unremarkable.Kidneys/ureters: A punctate calculus is seen in the right renal hilum. Thereis no hydronephrosis. Otherwise, unremarkable.Pelvic organs/bladder: The uterus is mildly enlarged and mildly heterogeneous.A small hypodense intramural lesion at the left uterine fundus may be afibroid. The bladder and adnexa are grossly unremarkable.Vessels: A few punctate calcifications along the pelvic floor likelyphleboliths.Lymph nodes: No lymphadenopathy.Peritoneum/retroperitoneum: A small amount of free fluid in the pelvis may bephysiologic. No definite evidence for pneumoperitoneum.Bowel: No abnormal bowel wall thickening or evidence of obstruction. Theappendix is not clearly visualized; however, there are no inflammatory changesin the expected area of the appendix. Bones/soft tissues: No destructivebony lesions. IMPRESSION:1. Nonspecific, mildly enlarged, mildly heterogeneous uterus. Small intramuralhypodense lesion at the left uterine fundus may be a fibroid.2. Small amount of free fluid in the pelvis may be physiologic.3. Otherwise, no acute abnormalities in the abdomen or pelvis.4. Minimal right nephrolithiasis without hydronephrosis.PRO TIME AND [id number] 19:15:00 Test Item Value Reference Range Interpretation Comments PT (test code = 14.7 s 9.8-13.6 H TT) INR (test code = 1.3 INR) INRH (test code = SUGGESTED INRH) THERAPEUTIC RANGE FOR INR: 2.5 - 3.5 For Patients with Prosthetic Valves or Patients with recurrent Thromboembolic Events 2.0 - 3.0 For Most Other Applications PTT (test code = 58.4 s 20.2-38.0 H PTT) PTTH (test code = To monitor the PTTH) effectiveness of heparin, we offer the Anti-Xa (Heparin Assay). It can be used for either unfractionated or LMW Heparin. Order Code is ANTI-XA DRUGS OF [id number] 19:13:00 Test Item Value Reference Range Interpretation Comments DRUG SCRN (test code URINE DRUG SCREEN = HDOA) This is an unconfirmed screening result and should not be used for non-medical purposes CANNABINOD (test code POSITIVE NEGATIVE A = 88C) AMPHETAMINE (test Negative NEGATIVE code = 84A) BENZODIAZP (test code Negative NEGATIVE = 86A) BARBITURAT (test code Negative NEGATIVE = 85A) OPIATES (test code = Negative NEGATIVE 92B) COCAINE (test code = POSITIVE NEGATIVE A 87A) PHENCYCLID (test code Negative NEGATIVE = 66A) METHADONE (test code Negative NEGATIVE = 64A) DOAH (test code = DOAH) *URINE DRUG SCREEN Cut-off values are as follows: Cannabinoids 50 ng/mL Cocaine 300 ng/mL Amphetamines 1000 ng/mL Phencyclidine 25 ng/mL Benzodiazepines 200 ng.mL Methadone 300 ng/mL Barbiturates 200 ng/mL Opiates 2000 ng/mL WET [id number] 19:10:00 Test Item Value Reference Range Interpretation Comments Direct Exam (test MODERATE EPITHELIAL CELLS code = DE1) SEEN Direct Exam (test MODERATE RED BLOOD CELLS code = DE2) SEEN Direct Exam (test MODERATE BACTERIA SEEN code = DE3) Direct Exam (test FEW WHITE BLOOD CELLS code = DE4) SEEN Direct Exam (test NO TRICHOMONAS SEEN code = DE5) Direct Exam (test RARE CLUE CELLS SEEN code = DE6) Direct Exam (test NO YEAST code = DE7) URINALYSIS WITH [id number] 19:06:00 Test Item Value Reference Range Interpretation Comments COLOR (test code = COLU) YELLOW YELLOW CLARITY (test code = CLA) SLT HAZY CLEAR A GLUCOSE UR (test code = UA GLUCOSE) NEGATIVE NEGATIVE BILI UR (test code = BILE) NEGATIVE NEGATIVE KETONES UR (test code = CARRINGTON) 1+ NEGATIVE A SP GRAVITY (test code = SPGR) 1.021 1.005-1.030 PH UR (test code = PH) 6.0 4.5-8.0 PROTEIN UR (test code = PU) TRACE NEGATIVE A UROBIL UR (test code = UROQ) 1.0 EU/dL 0.2-1.0 NITRITE UR (test code = NITRITE) NEGATIVE NEGATIVE BLOOD UR (test code = UA BLOOD) TRACE NEGATIVE A LEUK ES UR (test code = LEUK) 2+ NEGATIVE A WBC UR (test code = UWBC) 8 /HPF 0-5 H RBC UR (test code = URBC) 4 /HPF 0-2 H EPITH UR (test code = UEPC) FEW /LPF FEW BACTERIA UR (test code = UBACT) NONE /HPF NONE CAST UR (test code = CAST) /LPF NONE CRYSTAL UR (test code = CRYU) / LPF NONE MUCUS UR (test code = MUC) / HPF NONE AMORPH UR (test code = JENNY) / HPF NONE TRICH UR (test code = UTRICH) /HPF NONE YEAST UR (test code = UY) /HPF NONE SPERM UR (test code = USPERM) /HPF NONE AMYLASE AND [id number] 18:51:00 Test Item Value Reference Range Interpretation Comments AMYLASE (test code = 10A) 66 U/L 28-100 LIPASE (test code = 60A) 71 IU/L 73-393 L COMPREHENSIVE METABOLIC [id number] 18:51:00 Test Item Value Reference Range Interpretation Comments GLUCOSE (test code = 06D) 80 mg/dL 75-100 SODIUM (test code = 01A) 139 mmol/L 136-145 POTASSIUM (test code = 01B) 3.8 mmol/L 3.6-5.1 CHLORIDE (test code = 04A) 107 mmol/L 98-107 CO2 (test code = 02A) 24 mmol/L 22-32 ANION GAP (test code = ANG) 11.8 mmol/L BUN (test code = 05D) 9 mg/dL 7-18 CREATININE (test code = 03E) 0.7 mg/dL 0.4-1.1 BUN/CREA (test code = BCR) 13 12-20 CALCIUM (test code = 09D) 8.4 mg/dL 8.3-9.5 BILI TOTAL (test code = 11A) 0.4 mg/dL 0.2-1.0 PROTEIN (test code = 07D) 8.0 g/dL 6.4-8.2 ALBUMIN (test code = 08D) 3.8 g/dL 3.5-4.8 GLOBULIN (test code = GLB) 4.2 g/dL 1.5-3.8 H ALB/GLOB (test code = AGRR) 0.9 1.0-2.6 L ALK PHOS (test code = 35A) 49 IU/L 42-121 AST (test code = 30A) 20 IU/L <=42 ALT (test code = 31A) 10 IU/L <=78 [id number] 18:51:00 Test Item Value Reference Range Interpretation Comments MAGNESIUM (test code = 48A) 1.9 mg/dL 1.8-2.4 SERUM [id number] 18:38:00 Test Item Value Reference Range Interpretation Comments PREG SRM (test code = PGS) NEGATIVE NEGATIVE CBC (INCLUDES AUTOMATED DIFFERENTIAL)2017-12-31 18:34:00 Test Item Value Reference Range Interpretation Comments WBC (test code = WBC) 10.4 10\S\3/uL 4.5-11.0 RBC (test code = RBC) 4.31 10\S\6/uL 4.30-5.70 HGB (test code = HBG) 10.4 g/dL 12.0-15.5 L HCT (test code = HCT) 32.6 % 35.0-44.0 L MCV (test code = MCV) 75.6 fL 81.0-99.0 L MCH (test code = MCH) 24.1 pg 27.0-31.0 L MCHC (test code = MCHC) 31.9 g/dL 32.0-36.0 L RDW (test code = RDW) 18.6 % 11.5-14.5 H PLT (test code = PLT) 330 10\S\3/uL 130-400 MPV (test code = MPV) 10.0 fL 9.4-12.4 NEUTROP # (test code = NE#) 7.8 10\S\3/uL 1.6-8.0 LYMPH # (test code = LY#) 1.8 10\S\3/uL 1.1-3.5 MONOCYTE # (test code = MO#) 0.6 10\S\3/uL 0.0-1.1 EOSINOPH # (test code = EO#) 0.1 10\S\3/uL 0.0-0.7 BASOPHIL # (test code = BA#) 0.1 10\S\3/uL 0.0-0.3 IG # (test code = IG#) 0.04 10\S\3/uL 0.00-0.06 NRBC # (test code = NRBC#) 0.00 10\S\3/uL 0.00-0.01 NEUTROPH % (test code = NE%) 75.2 % 35.0-73.0 H LYMPH % (test code = LY%) 16.9 % 20.0-55.0 L MONO % (test code = MO%) 5.7 % 2.5-10.0 EOSINOPH % (test code = EO%) 1.2 % 0.0-5.0 BASOPHIL % (test code = BA%) 0.6 % 0.0-2.0 IG % (test code = IG%) 0.4 % 0.0-0.8 NRBC% (test code = NRBC%) 0.0 % 0.0-0.2 MANDIFF (test code = MDIFF) NO NO RBC MORPH (test code = RBCMOR) NORMAL
[2021-10-01] MEDS ORDERED: NA CHLORIDE 0.9% 1,000 ML ONE (16:34)
[2021-10-01] MEDS ORDERED: MORPHINE 4 MG/ML SYR ONE ×2 (16:34→19:15)
[2021-10-01] MEDS ORDERED: ONDANSETRON 4 MG/2 ML VIAL ONE (16:34)
[2021-10-01 16:56] LABS: Absolute Lymphocytes (CBC) 3.3 K/uL (0.7-4.9); Basophils % 1.4 % (0-1.3); Hematocrit 41.6 % (36.0-45.0); Lymphocytes % 44.9 % (15.3-44.8); MPV 8.4 fL (7.6-11.3); RBC Red Blood Cell Count 5.46 M/uL (3.86-4.86)
[2021-10-01 17:36] LABS: ALT/SGPT 52 U/L (12-78); BUN Blood Urea Nitrogen 22 mg/dL (7-18); Bicarbonate 22 mmol/L (21-32); Sodium Level 141 mmol/L (136-145)
[2021-10-01 17:40] LABS: AST/SGOT 28 U/L (15-37)
--- NOTE | 2021-10-01 17:40 | RAD REPORT ---
EXAM DESCRIPTION: CT - Stone Protocol - 10/01/2021 5:27 pm CLINICAL HISTORY: Abdominal pain. Flank pain COMPARISON: April 2021 TECHNIQUE: Computed axial tomography of the abdomen pelvis was obtained without oral or IV contrast. Lack of IV and oral contrast limits evaluation of solid organs, bowel, and vessels. Coronal reformat freddy images were obtained and reviewed. All CT scans are performed using dose optimization technique as appropriate and may include automated exposure control or mA/KV adjustment according to patient size. FINDINGS: 2 millimeter calculus right kidney. An additional 1 millimeter calculus right kidney. No hydronephrosis. A left renal calculus is not seen. An ureteral calculus is not noted. A bladder ca lculus is not present. A cholecystectomy. The liver, spleen, pancreas and adrenals appear grossly normal There is no evidence of diverticulitis. The appendix appears normal Hysterectomy IMPRESSION: Small nonobstructing right renal calculi
[2021-10-01 17:41] LABS: Potassium 4.5 mmol/L (3.5-5.1)
[2021-10-01 17:47] LABS: Alkaline Phosphatase 92 U/L (45-117); Bilirubin Direct < 0.1 mg/dL (0-0.2); Bilirubin Total 0.2 mg/dL (0.2-1.0); Glucose Level 92 mg/dL (74-106); Lipase 214 U/L (73-393); Protein, Total 8.9 g/dL (6.4-8.2)
[2021-10-01] MEDS ORDERED: LIDOCAINE 4% PATCH ONE (17:54)
[2021-10-01 18:55] LABS: Urine Blood Negative (Negative); Urine Glucose Negative (Negative); Urine Protein Negative (Negative); Urine Specific Gravity 1.025 (1.005-1.030)
[2021-10-01 19:10] LABS: Urine Specific Gravity/Preg 1.025 (1.005-1.030)
[2021-10-01] MEDS ORDERED: KETOROLAC 30 MG/ML INJ ONE (19:15)
[2021-10-01 19:32] LABS: Urine Amorphous Sediment 2+ /HPF (NONE SEEN); Urine Bacteria >50 /HPF (<20); Urine Mucus 2+ /HPF (NONE SEEN); Urine RBC <5 /HPF (NONE SEEN)
[2021-10-01] MEDS ORDERED: NA CHLORIDE 0.9% 100 ML ONE (20:18)
[2021-10-01] MEDS ORDERED: CEFTRIAXONE 1000 MG/VIAL ONE (20:18)
--- NOTE | 2021-10-01 20:37 | EDPHYS ---
Physician Documentation [facility] Name: Kathia Zendejas Age: 41 yrs Sex: Female : 1980 Arrival Date: 10/01/2021 Time: 16:18 Bed 12 Private MD: ED Physician Westley Diaz HPI: 10/01 16:28 This 41 yrs old Black Female presents to ER via EMS with complaints of Flank Pain, Low cp Back Pain. 16:28 The patient complains of pain in the right mid back. The pain does not radiate. Onset: cp The symptoms/episode began/occurred 3 day(s) ago, and became worse today. 16:28 Associated signs and symptoms: Pertinent negatives: diarrhea, dysuria, fever, pain cp radiating to the lower extremities, vomiting, abdominal pain. Severity of pain: in the emergency department the pain is unchanged despite EMS interventions. Historical: - Allergies: 16:21 No Known Allergies; ss - PMHx: 16:21 Seizure; ss - PSHx: 16:21 Hysterectomy; ss - Immunization history:: Client reports receiving the 2nd dose of the Covid vaccine. - Social history:: Smoking status: Patient denies any tobacco usage or history of. ROS: 16:35 Constitutional: Negative for body aches, chills, fever, poor PO intake. cp 16:35 Eyes: Negative for injury, pain, redness, and discharge. cp 16:35 ENT: Negative for ear pain, sore throat, difficulty swallowing, difficulty handling secretions. 16:35 Cardiovascular: Negative for chest pain, palpitations. 16:35 Respiratory: Negative for cough, shortness of breath, wheezing. 16:35 Abdomen/GI: Negative for abdominal pain, nausea, vomiting, and diarrhea. 16:35 Back: Positive for flank pain, on the right. 16:35 Skin: Negative for rash. 16:35 Neuro: Negative for altered mental status, headache, weakness. 16:35 All other systems are negative. Exam: 16:40 Constitutional: The patient appears in no acute distress, alert, awake, cp non-diaphoretic, non-toxic, well developed, well nourished, uncomfortable. 16:40 Head/Face: Normocephalic, atraumatic. cp 16:40 Eyes: Periorbital structures: appear normal, Conjunctiva: normal, no exudate, no injection, Sclera: no appreciated abnormality, Lids and lashes: appear normal, bilaterally. 16:40 ENT: External ear(s): are unremarkable, Nose: is normal, Mouth: Lips: moist, Oral mucosa: moist, Posterior pharynx: Airway: no evidence of obstruction, patent. 16:40 Chest/axilla: Inspection: normal. 16:40 Cardiovascular: Rate: normal, Rhythm: regular. 16:40 Respiratory: the patient does not display signs of respiratory distress, Respirations: normal, no use of accessory muscles, no retractions, labored breathing, is not present, Breath sounds: are clear throughout, no decreased breath sounds, no stridor, no wheezing. 16:40 Abdomen/GI: Inspection: abdomen appears normal, Palpation: abdomen is soft and non-tender, in all quadrants. 16:40 Back: pain, that is severe, of the right mid back, ROM is painful, vertebral tenderness, is not appreciated, Straight leg raises: of both lower extremities does not illicit pain. 16:40 Skin: cellulitis, is not appreciated, no rash present. 16:40 Neuro: Orientation: to person, place \T\ time. Mentation: is normal, Motor: moves all fours, strength is normal, Sensation: is normal. 16:40 Psych: Behavior/mood is cooperative, Affect is animated. Vital Signs: 16:18 BP 144 / 103; Pulse 86; Resp 26; Temp 97.6(TE); Pulse Ox 100% ; Weight 66.68 kg; Height ss 5 ft. 0 in. (152.40 cm); Pain 10/10; 16:18 Body Mass Index 28.71 (66.68 kg, 152.40 cm) ss MDM: 16:28 Patient medically screened. cp 19:31 ED course: review of [place] prescription monitor website shows patient filled RX for 110 cp Oxycodone on 09-15-2021. 20:35 Data reviewed: vital signs, nurses notes, lab test result(s), radiologic studies, CT cp scan. 20:35 Counseling: I had a detailed discussion with the patient and/or guardian regarding: the cp historical points, exam findings, and any diagnostic results supporting the discharge/admit diagnosis, lab results, radiology results, to return to the emergency department if symptoms worsen or persist or if there are any questions or concerns that arise at home. Response to treatment: the patient's symptoms have markedly improved after treatment, and as a result, I will discharge patient. ED course: VSS. Pain markedly improved. Patient appears non-toxic. Will discharge to home for continued monitoring. 10/01 16:28 Order name: Basic Metabolic Panel; Complete Time: 17:48 10/01 17:49 Interpretation: Normal except: CL 108; BUN 22; GFR 82. 10/01 16:28 Order name: CBC with Diff; Complete Time: 17:47 10/01 17:48 Interpretation: Normal except: RBC 5.46; MCV 76.1; MCH 24.5; RDW 17.0; RONEY% 39.6; LYM% cp 44.9; BASO% 1.4. 10/01 16:28 Order name: Hepatic Function; Complete Time: 17:48 10/01 17:49 Interpretation: Normal except: TP 8.9; GLOB 4.9; A/G 0.8. 10/01 16:28 Order name: Lipase; Complete Time: 17:48 10/01 16:28 Order name: Urine Microscopic Only; Complete Time: 19:57 10/01 19:58 Interpretation: Reviewed. 10/01 18:55 Order name: Urine Dipstick-Ancillary; Complete Time: 19:23 [facility] 10/01 19:23 Interpretation: Normal except: UESTR 1+. 10/01 16:28 Order name: CT Stone Protocol; Complete Time: 17:47 10/01 18:55 Order name: Urine --Ancillary (enter results) em1 10/01 18:56 Order name: Urine --Ancillary; Complete Time: 19:23 [facility] 10/01 19:34 Order name: Urine Culture [facility] 10/01 16:28 Order name: IV Saline Lock; Complete Time: 16:37 10/01 16:28 Order name: Labs collected and sent; Complete Time: 16:39 10/01 16:28 Order name: Urine Dipstick-Ancillary (obtain specimen); Complete Time: 18:55 10/01 16:28 Order name: Urine Test (obtain specimen); Complete Time: 18:55 cp Administered Medications: 16:39 Drug: NS 0.9% 1000 ml Route: IV; Rate: 1 bolus; Site: right antecubital; aj1 16:39 Drug: morphine 4 mg Route: IVP; Site: right antecubital; aj1 16:39 Drug: Zofran (Ondansetron) 4 mg Route: IVP; Site: right antecubital; aj1 17:58 Drug: Lidoderm Patch 5 % (700 mg/patch) 1 patches Route: Topical; Site: affected area; iw 19:29 Drug: morphine 4 mg {Note: RASS 1.} Route: IVP; Site: right antecubital; aj1 19:29 Drug: Ketorolac 15 mg Route: IVP; Site: right antecubital; aj1 21:20 Drug: Rocephin - (cefTRIAXone) 1 grams Route: IVPB; Infused Over: 30 mins; Site: left aj1 antecubital; 21:58 Drug: Hydrocodone-Acetaminophen (7.5 mg-325 mg) 1 tabs Route: PO; aj1 Disposition: 10/02 08:31 Co-signature as Attending Physician, Westley Diaz MD I agree with the assessment and kdr plan of care. Disposition Summary: 10/01/21 20:37 Discharge Ordered Location: Home cp Problem: new cp Symptoms: have improved cp Condition: Stable cp Diagnosis - Low back pain cp - UTI/ Urinary tract infection, site not specified cp - Calculus of kidney cp Followup: cp - With: Private Physician - When: 2 - 3 days - Reason: Recheck today's complaints Discharge Instructions: - Discharge Summary Sheet cp - Kidney Stones cp - Urinary Tract Infection, Adult cp - Heat Therapy cp - Back Exercises cp - Form - Excuse from Work, School, or Physical Activity cp Forms: - Medication Reconciliation Form cp - Thank You Letter cp - Work release form bb - Antibiotic Education cp - Prescription Opioid Use cp Prescriptions: - Zofran 4 mg Oral Tablet - take 1 tablet by ORAL route every 12 hours As needed; 20 tablet; Refills: 0, cp Product Selection Permitted - Cyclobenzaprine 10 mg Oral Tablet - take 1 tablet by ORAL route every 8 hours As needed; 20 tablet; Refills: 0, cp Product Selection Permitted - Diclofenac Sodium 75 mg Oral Tablet Sustained Release - take 1 tablet by ORAL route 2 times per day; 30 tablet; Refills: 0, Product cp Selection Permitted - Bactrim DS 800-160 mg Oral Tablet - take 1 tablet by ORAL route every 12 hours for 7 days; 14 tablet; Refills: 0, cp Product Selection Permitted - Lidoderm 5 % Topical adhesive patch,medicated - apply 1 patch by TOPICAL route once daily; 1 box; Refills: 0, Product Selection cp Permitted Signatures: Dispatcher [employer] Chayo Mendoza RN RN aj1 Westley Diaz MD MD kdr Williams, Irene, RN RN iw Sultana Bear RN RN ss Tesfaye Landry PA PA cp Corrections: (The following items were deleted from the chart) 10/01 17:49 17:48 Normal except: CL 108; BUN 22. cp cp
--- NOTE | 2021-10-01 20:37 | ER ---
Nurse's Notes [facility] Name: Kathia Zendejas Age: 41 yrs Sex: Female : 1980 Arrival Date: 10/01/2021 Time: 16:18 Bed 12 Private MD: Diagnosis: Low back pain;UTI/ Urinary tract infection, site not specified;Calculus of kidney Presentation: 10/01 16:18 Chief complaint: Patient states: low back/R flank pain that began 3 days ago. 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 Coronavirus screen: Client denies travel out of the [place] in the last 14 days. Ebola Screen: Patient denies exposure to infectious person. Patient denies travel to an Ebola-affected area in the 21 days before illness onset. Initial Sepsis Screen: Does the patient meet any 2 criteria? No. Patient's initial sepsis screen is negative. Does the patient have a suspected source of infection? No. Patient's initial sepsis screen is negative. Risk Assessment: Do you want to hurt yourself or someone else? Patient reports no desire to harm self or others. Onset of symptoms was September 28, 2021. 16:18 Method Of Arrival: EMS: [facility] ss 16:18 Acuity: BETSY 3 ss Historical: - Allergies: 16:21 No Known Allergies; ss - PMHx: 16:21 Seizure; ss - PSHx: 16:21 Hysterectomy; ss - Immunization history:: Client reports receiving the 2nd dose of the Covid vaccine. - Social history:: Smoking status: Patient denies any tobacco usage or history of. Assessment: 16:45 General: Appears uncomfortable, Behavior is anxious, restless. Pain: Complains of pain aj1 in back Pain currently is 10 out of 10 on a pain scale. Neuro: Level of Consciousness is awake, alert, obeys commands, Oriented to person, place, time, situation. Cardiovascular: Patient's skin is warm and dry. Respiratory: Airway is patent Respiratory effort is even, unlabored, Respiratory pattern is regular, symmetrical. GI: No signs and/or symptoms were reported involving the gastrointestinal system. : Denies burning with urination. EENT: No signs and/or symptoms were reported regarding the EENT system. Derm: No signs and/or symptoms reported regarding the dermatologic system. Skin is pink, warm \T\ dry. normal. Musculoskeletal: Circulation, motion, and sensation intact. 17:15 Reassessment: Patient transported to CT via wheelchair. aj1 19:59 Reassessment: Patient crying states that her pain is back and she needs more pain aj1 medication. Notified [facility]. Vital Signs: 16:18 BP 144 / 103; Pulse 86; Resp 26; Temp 97.6(TE); Pulse Ox 100% ; Weight 66.68 kg; Height ss 5 ft. 0 in. (152.40 cm); Pain 10/10; 16:18 Body Mass Index 28.71 (66.68 kg, 152.40 cm) ED Course: 16:18 Patient arrived in ED. ss 16:21 Triage completed. ss 16:21 Arm band placed on right wrist. 16:22 Tesfaye Landry PA is PHCP. cp 16:23 Westley Diaz MD is Attending Physician. cp 16:33 Chayo Mendosa RN is Primary Nurse. aj1 16:37 Inserted saline lock: 20 gauge in left antecubital area, using aseptic technique. Blood iw collected. 16:39 Patient has correct armband on for positive identification. Bed in low position. Call 5 light in reach. Side rails up X 1. Warm blanket given. Pulse ox on. NIBP on. 16:39 Basic Metabolic Panel Sent. 5 16:39 CBC with Diff Sent. 5 16:39 Hepatic Function Sent. 5 16:39 Lipase Sent. 5 17:27 CT Stone Protocol In Process Unspecified. EDWV 18:55 Urine Microscopic Only Sent. 5 18:55 Urine collected: clean catch specimen, clear. 5 19:03 Urine --Ancillary (enter results) Sent. 5 19:03 Urine --Ancillary Sent. 5 Administered Medications: 16:39 Drug: NS 0.9% 1000 ml Route: IV; Rate: 1 bolus; Site: right antecubital; aj1 16:39 Drug: morphine 4 mg Route: IVP; Site: right antecubital; aj1 16:39 Drug: Zofran (Ondansetron) 4 mg Route: IVP; Site: right antecubital; aj1 17:58 Drug: Lidoderm Patch 5 % (700 mg/patch) 1 patches Route: Topical; Site: affected area; iw 19:29 Drug: morphine 4 mg {Note: RASS 1.} Route: IVP; Site: right antecubital; aj1 19:29 Drug: Ketorolac 15 mg Route: IVP; Site: right antecubital; aj1 21:20 Drug: Rocephin - (cefTRIAXone) 1 grams Route: IVPB; Infused Over: 30 mins; Site: left aj1 antecubital; 21:58 Drug: Hydrocodone-Acetaminophen (7.5 mg-325 mg) 1 tabs Route: PO; aj1 Outcome: 20:37 Discharge ordered by . jai 22:10 Patient left the ED. aj1 Signatures: Dispatcher [employer] EDChayo Valentin RN RN aj1 Umm Solano RN RN Sultana Bear RN RN ss Page, Corey, PA PA cp Martinez, Maria [facility]
[2021-10-01] MEDS ORDERED: HYDROCODONE/APAP 7.5/325 MG TAB ONE (21:36)
[2021-10-01 22:18] VITALS: BP 144/103; TEMP 97.6; O2SAT 100
== END 2021-10-01 22:10 | disposition home or self-care (01) ==
LOC: ER 16:17
DX: N39.0 Urinary tract infection, site not specified (principal); N20.0 Calculus of kidney
CPT/HCPCS: 36415; 74176; 76377; 80048; 80076; 81003; 81015; 81025; 83690; 85025; 87086; 87088; 99284; J2405; J7030